=== PATIENT | male | born 1975 | race Caucasian/White ===

== ENCOUNTER → 2020-05-15 15:36 | Outpatient (CLI) | payer OTHER, SELFPAY ==
--- NOTE | 2020-05-15 15:40 | DI.CT.S_ITS ---
PROCEDURE: CT SINUS SCREEN WO CON INDICATIONS: CHRONIC SINUSITUS TECHNIQUE: Noncontrast 3.0 mm axial images acquired from the frontal sinuses to the mid-sella, with coronal and sagittal reformats. For radiation dose reduction, the following was used: automated exposure control, adjustment of mA and/or kV according to patient size. COMPARISON: None. FINDINGS: Image quality: Excellent. Maxillary Sinuses: No bony remodeling or destruction. Sinuses are clear. Ethmoid Air Cells: No bony remodeling or destruction. Sinuses are clear. Sphenoid Sinuses: No bony remodeling or destruction. Sinuses are clear. Frontal Sinuses: No bony remodeling or destruction. Sinuses are clear. Ostiomeatal Complexes: Ostiomeatal complexes are patent. No Anish cells. Miscellaneous: Visualized intra-orbital contents are normal. No bonita bullosa or paradoxical turbinate curvature. Leftward nasal septal deviation. IMPRESSION: Clear sinuses Leftward nasal septal deviation Dictated by: Mukesh Vicente M.D. on 05/15/2020 at 16:11 Approved by: Mukesh Vicente M.D. on 05/15/2020 at 16:18
== END ==
PROVIDERS: Referring Provider Family Medicine; Visit Provider Family Medicine
DX: J32.9 Chronic sinusitis, unspecified (principal); J34.2 Deviated nasal septum
CPT/HCPCS: 70486

== ENCOUNTER 2020-08-02 04:53 | Emergency (ER) | payer OTHER, SELFPAY ==
[2020-08-02] VITALS (12 sets, daily range): BP systolic 95–130; BP diastolic 51–67; PULSE 61–76; RESP 17; TEMP 36.9; O2SAT 92–98; BMI 32.1
[2020-08-02 05:15] LABS: Add Manual Diff / Slide Review NO; Basophils Absolute Auto 0 /uL (0-100); Basophils Percent Auto 0.5 % (0-2); Eosinophils Absolute Auto 100 /uL (0-450); Eosinophils Percent Auto 1.2 % (2-4); Hematocrit 49.8 % (41-53); Hemoglobin 17.1 g/dL (13.5-17.5); Lymphocytes Absolute Auto 1100 /uL (1100-4500); Lymphocytes Percent Auto 10.9 % (25-40); Mean Corpuscular HGB Conc 34.4 % (30-36); Mean Corpuscular Hemoglobin 30.2 PG (26-34); Monocytes Absolute Auto 300 /uL (0-900); Monocytes Percent Auto 3.5 % (3-14); Neutrophils Absolute Auto 8200 /uL (1500-7000); Neutrophils Percent Auto 83.9 % (50-75); Platelet Count 229 X10^3/uL (150-400); Red Blood Cell Count 5.66 X10^6/uL (4.5-5.9); Red Cell Distribution Width 13.7 % (11.6-14.8); White Blood Cell Count 9.8 X10^3/uL (4.5-11.0)
[2020-08-02] MEDS: ONDANSETRON 4 MG/2 ML INJ IV ×2 (05:15→07:02)
[2020-08-02] MEDS: SODIUM CHLORIDE 0.9% 1,000 ML 1000 ML IV ×2 (05:16→07:03)
--- NOTE | 2020-08-02 05:17 | ED.GENADULT ---
HPI - General Adult <Rody Blunt MD - Last Filed: 08/05/20 02:16> General Chief complaint: Abdominal Pain Stated complaint: n/v intense stomach pain Time Seen by Provider: 08/02/20 05:06 Source: patient Mode of arrival: Wheelchair Limitations: no limitations History of Present Illness HPI narrative: 45-year-old gentleman with chronic back pain and peripheral neuropathy, seasonal allergies and reflux presents with 24 hours of severe vomiting and diarrhea with orthostatics symptoms and abdominal pain. Over the last week multiple family members including 3 other kids had similar symptoms but not quite as severe. He had diarrhea a couple of days ago that resolved spontaneously. He reports no fevers. He has had significant chills and fatigue. No chest pain but he does have esophageal pain and upper epigastrium pain from persistent vomiting and retching. No cough, mild headache mild dizziness no asymmetric weakness. Related Data Previous Rx's Medication Instructions Recorded ondansetron 4 mg PO Q6H PRN #14 tab 08/02/20 Allergies Allergy/AdvReac Type Severity Reaction Status Date / Time No Known Drug Allergies Allergy Verified 08/02/20 05:03 Review of Systems <Rody Blunt MD - Last Filed: 08/05/20 02:16> Review of Systems Narrative: Remainder of review of systems including constitutional, ENT, cardiovascular, respiratory, GI, , musculoskeletal, skin, neurologic and psychiatric systems reviewed and are unremarkable except as noted in HPI. Patient History <Rody Blunt MD - Last Filed: 08/05/20 02:16> Medical History Acid reflux Chronic back pain Irritable bowel syndrome Seasonal allergies Social History Smoking Status: Never smoker Smoking Status: Never smoker alcohol intake frequency: a few times a month Substance Use Type: does not use Exam <Rody Blunt MD - Last Filed: 08/05/20 02:16> Narrative Exam Narrative: General: Acutely ill-appearing, weak but able to participate fully with history taking HEENT: Dry mucous membranes, normal sclera with reactive pupils, Respiratory: Lungs are clear to auscultation, no wheezing no rales no rhonchi. Full and symmetrical air movement Cardiac: Regular rate and rhythm no murmurs no bruits Abdomen: Soft, mild diffuse tenderness, hyperactive bowel tones, no flank pain Skin: Warm and dry, no rashes Neurologic: Grossly neurologically intact with no obvious asymmetries or abnormalities Extremities: No trauma, well perfused Psych: Cooperative, appropriate insight and affect Initial Vital Signs Initial Vital Signs: Vital Signs Temperature 98.5 F 08/02/20 05:03 Pulse Rate 74 08/02/20 05:03 Respiratory Rate 17 08/02/20 05:03 Blood Pressure 130/65 08/02/20 05:03 Pulse Oximetry 93 08/02/20 05:03 <Jose Manuel Vivar DO - Last Filed: 08/02/20 09:12> Initial Vital Signs Initial Vital Signs: Vital Signs Temperature 98.5 F 08/02/20 05:03 Pulse Rate 74 08/02/20 05:03 Respiratory Rate 17 08/02/20 05:03 Blood Pressure 130/65 08/02/20 05:03 Pulse Oximetry 93 08/02/20 05:03 Course <Rody Blunt MD - Last Filed: 08/05/20 02:16> Orders Ordered: Discontinued Medications Hydromorphone HCl (Hydromorphone 0.5 Mg Inj) 0.5 mg IV Q15MIN PRN PRN Reason: Pain, Last Admin: 08/02/20 05:35 Dose: 0.5 mg Documented by: AFIA Hydromorphone HCl (Hydromorphone 1 Mg Inj) 1 mg IV NOW ONE Stop: 08/02/20 06:42 Last Admin: 08/02/20 07:02 Dose: 1 mg Documented by: CON Sodium Chloride (Normal Saline 0.9%) 1,000 mls @ 1,000 mls/hr IV BOLUS ONE Stop: 08/02/20 06:07 Last Infusion: 08/02/20 07:12 Dose: 0 mls/hr Documented by: Admin: 08/02/20 05:16 Dose: 1,000 mls/hr Documented by: AFIA Sodium Chloride (Normal Saline 0.9%) 1,000 mls @ 1,000 mls/hr IV BOLUS ONE Stop: 08/02/20 06:51 Last Infusion: 08/02/20 09:03 Dose: 0 mls/hr Documented by: Admin: 08/02/20 07:03 Dose: 1,000 mls/hr Documented by: CON Ondansetron HCl (Ondansetron 4 Mg/2 Ml Inj) 4 mg IV NOW ONE Stop: 08/02/20 05:09 Last Admin: 08/02/20 05:15 Dose: 4 mg Documented by: AFIA Ondansetron HCl (Ondansetron 4 Mg/2 Ml Inj) 4 mg IV NOW ONE Stop: 08/02/20 06:42 Last Admin: 08/02/20 07:02 Dose: 4 mg Documented by: CON Vital Signs Vital signs: Vital Signs - 8 hr 08/02/20 05:03 08/02/20 05:15 08/02/20 05:30 Temperature 98.5 F Pulse Rate 74 69 69 Respiratory Rate 17 Blood Pressure 130/65 Pulse Oximetry 93 93 95 08/02/20 06:00 08/02/20 07:09 08/02/20 07:30 Temperature Pulse Rate 65 66 62 Respiratory Rate Blood Pressure 123/65 Pulse Oximetry 93 93 92 08/02/20 07:43 08/02/20 08:00 08/02/20 08:30 Temperature Pulse Rate 66 67 67 Respiratory Rate Blood Pressure 108/67 97/56 L 95/51 L Pulse Oximetry 94 92 92 08/02/20 09:00 08/02/20 09:02 Temperature Pulse Rate 61 71 Respiratory Rate Blood Pressure 102/65 Pulse Oximetry 97 98 <Jose Manuel Vivar DO - Last Filed: 08/02/20 09:12> Orders Ordered: Discontinued Medications Hydromorphone HCl (Hydromorphone 0.5 Mg Inj) 0.5 mg IV Q15MIN PRN PRN Reason: Pain, Last Admin: 08/02/20 05:35 Dose: 0.5 mg Documented by: AFIA Hydromorphone HCl (Hydromorphone 1 Mg Inj) 1 mg IV NOW ONE Stop: 08/02/20 06:42 Last Admin: 08/02/20 07:02 Dose: 1 mg Documented by: CON Sodium Chloride (Normal Saline 0.9%) 1,000 mls @ 1,000 mls/hr IV BOLUS ONE Stop: 08/02/20 06:07 Last Infusion: 08/02/20 07:12 Dose: 0 mls/hr Documented by: Admin: 08/02/20 05:16 Dose: 1,000 mls/hr Documented by: AFIA Sodium Chloride (Normal Saline 0.9%) 1,000 mls @ 1,000 mls/hr IV BOLUS ONE Stop: 08/02/20 06:51 Last Infusion: 08/02/20 09:03 Dose: 0 mls/hr Documented by: Admin: 08/02/20 07:03 Dose: 1,000 mls/hr Documented by: CON Ondansetron HCl (Ondansetron 4 Mg/2 Ml Inj) 4 mg IV NOW ONE Stop: 08/02/20 05:09 Last Admin: 08/02/20 05:15 Dose: 4 mg Documented by: AFIA Ondansetron HCl (Ondansetron 4 Mg/2 Ml Inj) 4 mg IV NOW ONE Stop: 08/02/20 06:42 Last Admin: 08/02/20 07:02 Dose: 4 mg Documented by: CON Vital Signs Vital signs: Vital Signs - 8 hr 08/02/20 05:03 08/02/20 05:15 08/02/20 05:30 Temperature 98.5 F Pulse Rate 74 69 69 Respiratory Rate 17 Blood Pressure 130/65 Pulse Oximetry 93 93 95 08/02/20 06:00 08/02/20 07:09 08/02/20 07:30 Temperature Pulse Rate 65 66 62 Respiratory Rate Blood Pressure 123/65 Pulse Oximetry 93 93 92 08/02/20 07:43 08/02/20 08:00 08/02/20 08:30 Temperature Pulse Rate 66 67 67 Respiratory Rate Blood Pressure 108/67 97/56 L 95/51 L Pulse Oximetry 94 92 92 08/02/20 09:00 08/02/20 09:02 Temperature Pulse Rate 61 71 Respiratory Rate Blood Pressure 102/65 Pulse Oximetry 97 98 Medical Decision Making <Rody Blunt MD - Last Filed: 08/05/20 02:16> Lab Data Result diagrams: 08/02/20 05:05 08/02/20 05:05 Labs: Lab Results 08/02/20 08/02/20 08/02/20 Range/Units 05:05 05:05 06:25 WBC 9.8 (4.5-11.0) X10^3/uL RBC 5.66 (4.5-5.9) X10^6/uL Hgb 17.1 (13.5-17.5) g/dL Hct 49.8 (41-53) % MCV 88.0 (80-100) fL MCH 30.2 (26-34) PG MCHC 34.4 (30-36) % RDW 13.7 (11.6-14.8) % Plt Count 229 (150-400) X10^3/uL Neut % (Auto) 83.9 H (50-75) % Lymph % (Auto) 10.9 L (25-40) % [place] % (Auto) 3.5 (3-14) % Eos % (Auto) 1.2 L (2-4) % Baso % (Auto) 0.5 (0-2) % Neut # (Auto) 8200 H (5278-8919) /uL Lymph # (Auto) 1100 (3668-2737) /uL [place] # (Auto) 300 (0-900) /uL Eos # (Auto) 100 (0-450) /uL Baso # (Auto) 0 (0-100) /uL Sodium 139 (137-145) mmol/L Potassium 5.0 (3.4-5.1) mmol/L Chloride 105 (98-107) mmol/L Carbon Dioxide 22 (22-32) mmol/L BUN 19 (9-20) mg/dL Creatinine 0.81 (0.66-1.25) mg/dL Estimated GFR > 60.0 (>60) mL/min BUN/Creatinine Ratio 23.5 H (6-22) Glucose 137 H (70-100) mg/dL Calcium 9.4 (8.4-10.2) mg/dL Magnesium 2.1 (1.6-2.3) mg/dL Total Bilirubin 0.5 (0.2-1.3) mg/dL AST 41 (17-59) IU/L ALT 70 H (<50) IU/L Alkaline Phosphatase 67 (38-126) U/L Total Protein 8.3 H (6.3-8.2) g/dL Albumin 4.9 (3.5-5.0) g/dL Globulin 3.4 (1.7-4.1) g/dL Albumin/Globulin Ratio 1.4 (1.0-2.8) Stl C. cayetanensis PCR Not detected (Not Detect) Stool Rotavirus (PCR) Not detected (Not Detect) Stool Adenovirus (PCR) Not detected (Not Detect) Stool Astrovirus (PCR) Not detected (Not Detect) Stool Cryptosporidium PCR Not detected (Not Detect) Stl E.coli Shiga Tox PCR Not detected (Not Detect) St Sh/Enteroin Ecoli PCR Not detected (Not Detect) Stool E coli O157 PCR Not Reportable Stl Enterotoxigenic E PCR Not detected (Not Detect) Stool EPEC (PCR) Not detected (Not Detect) Stl E. histolytica PCR Not detected (Not Detect) Stool Giardia Lamblia PCR Not detected (Not Detect) Stool Sapovirus (PCR) Not detected (Not Detect) Stl P. shigelloides PCR Not detected (Not Detect) St Y.enterocolitica PCR Not detected (Not Detect) Stool Vibrio (PCR) Not detected (Not Detect) Stl Vibrio cholerae PCR Not detected (Not Detect) Stl Enteroaggr Ecoli PCR Not detected (Not Detect) Stl Norovirus GI/GII PCR Not detected (Not Detect) Campylobacter (PCR) Not detected (Not Detect) C. difficile Tox (PCR) Not detected (Not Detect) Salmonella (PCR) Not detected (Not Detect) <Jose Manuel Vivar DO - Last Filed: 08/02/20 09:12> Lab Data Lab results reviewed: Yes I reviewed the patient's lab results. Labs: Lab Results 08/02/20 08/02/20 08/02/20 Range/Units 05:05 05:05 06:25 WBC 9.8 (4.5-11.0) X10^3/uL RBC 5.66 (4.5-5.9) X10^6/uL Hgb 17.1 (13.5-17.5) g/dL Hct 49.8 (41-53) % MCV 88.0 (80-100) fL MCH 30.2 (26-34) PG MCHC 34.4 (30-36) % RDW 13.7 (11.6-14.8) % Plt Count 229 (150-400) X10^3/uL Neut % (Auto) 83.9 H (50-75) % Lymph % (Auto) 10.9 L (25-40) % [place] % (Auto) 3.5 (3-14) % Eos % (Auto) 1.2 L (2-4) % Baso % (Auto) 0.5 (0-2) % Neut # (Auto) 8200 H (1870-5871) /uL Lymph # (Auto) 1100 (2224-8714) /uL [place] # (Auto) 300 (0-900) /uL Eos # (Auto) 100 (0-450) /uL Baso # (Auto) 0 (0-100) /uL Sodium 139 (137-145) mmol/L Potassium 5.0 (3.4-5.1) mmol/L Chloride 105 (98-107) mmol/L Carbon Dioxide 22 (22-32) mmol/L BUN 19 (9-20) mg/dL Creatinine 0.81 (0.66-1.25) mg/dL Estimated GFR > 60.0 (>60) mL/min BUN/Creatinine Ratio 23.5 H (6-22) Glucose 137 H (70-100) mg/dL Calcium 9.4 (8.4-10.2) mg/dL Magnesium 2.1 (1.6-2.3) mg/dL Total Bilirubin 0.5 (0.2-1.3) mg/dL AST 41 (17-59) IU/L ALT 70 H (<50) IU/L Alkaline Phosphatase 67 (38-126) U/L Total Protein 8.3 H (6.3-8.2) g/dL Albumin 4.9 (3.5-5.0) g/dL Globulin 3.4 (1.7-4.1) g/dL Albumin/Globulin Ratio 1.4 (1.0-2.8) Stl C. cayetanensis PCR Not detected (Not Detect) Stool Rotavirus (PCR) Not detected (Not Detect) Stool Adenovirus (PCR) Not detected (Not Detect) Stool Astrovirus (PCR) Not detected (Not Detect) Stool Cryptosporidium PCR Not detected (Not Detect) Stl E.coli Shiga Tox PCR Not detected (Not Detect) St Sh/Enteroin Ecoli PCR Not detected (Not Detect) Stool E coli O157 PCR Not Reportable Stl Enterotoxigenic E PCR Not detected (Not Detect) Stool EPEC (PCR) Not detected (Not Detect) Stl E. histolytica PCR Not detected (Not Detect) Stool Giardia Lamblia PCR Not detected (Not Detect) Stool Sapovirus (PCR) Not detected (Not Detect) Stl P. shigelloides PCR Not detected (Not Detect) St Y.enterocolitica PCR Not detected (Not Detect) Stool Vibrio (PCR) Not detected (Not Detect) Stl Vibrio cholerae PCR Not detected (Not Detect) Stl Enteroaggr Ecoli PCR Not detected (Not Detect) Stl Norovirus GI/GII PCR Not detected (Not Detect) Campylobacter (PCR) Not detected (Not Detect) C. difficile Tox (PCR) Not detected (Not Detect) Salmonella (PCR) Not detected (Not Detect) MDM Narrative Medical decision making narrative: Dr vivar: Received turned over from night provider. Reviewed patient's history and physical on labs. His GI panel was unremarkable. Received fluids and pain medication here in the emergency department. Has family members who have similar symptoms. No indication for antibiotics. We will send home with [facility]. I feel we can hold on further workup here in the ER. We also discussed starting on an H2 reji. He does have a history of reflux disease. He was given return precautions and follow-up instructions. He expressed understanding agreement. Discharge Plan Departure Patient Disposition: Home Clinical Impression: Abdominal pain Instructions: Nausea and Vomiting-Adult Activity Restrictions/Additional Instructions: A prescription for nausea medication was electronically transmitted to [facility]. I recommend that you eat a bland diet. Increase your fluid intake by drinking small amounts over longer periods of time. Contact your primary provider for follow-up. Return to the emergency department for any new or worsening symptoms Prescriptions: New ondansetron 4 mg tablet,disintegrating 4 mg PO Q6H PRN (Reason: nausea and vomiting) Qty: 14 RF: 0
[2020-08-02 05:30] LABS: Alanine Aminotransferase 70 IU/L (<50); Albumin 4.9 g/dL (3.5-5.0); Albumin Globulin Ratio 1.4 (1.0-2.8); Alkaline Phosphatase 67 U/L (38-126); Aspartate Aminotransferase 41 IU/L (17-59); BUN Creatinine Ratio 23.5 (6-22); Bilirubin Total 0.5 mg/dL (0.2-1.3); Blood Urea Nitrogen 19 mg/dL (9-20); Calcium 9.4 mg/dL (8.4-10.2); Carbon Dioxide 22 mmol/L (22-32); Chloride 105 mmol/L (98-107); Estimated Glomerular Filt Rate > 60.0 mL/min (>60); Globulin 3.4 g/dL (1.7-4.1); Glucose 137 mg/dL (70-100); Magnesium 2.1 mg/dL (1.6-2.3); Sodium 139 mmol/L (137-145); Total Protein 8.3 g/dL (6.3-8.2)
[2020-08-02 05:33] LABS: HEMOLYSIS 82 (0-50)
[2020-08-02] MEDS: HYDROMORPHONE 0.5 MG INJ IV (05:35)
[2020-08-02] MEDS: HYDROMORPHONE 1 MG INJ IV (07:02)
[2020-08-02 08:49] LABS: Adenovirus F 40/41 Not Detected (Not Detect); Astrovirus Not Detected (Not Detect); Campylobacter Not Detected (Not Detect); Clostridium difficile toxin AB Not Detected (Not Detect); Cryptosporidium Not Detected (Not Detect); Cyclospora cayetanensis Not Detected (Not Detect); Entamoeba histolytica Not Detected (Not Detect); Enteroaggregative E.coli Not Detected (Not Detect); Enteropathogenic E.coli Not Detected (Not Detect); Enterotoxigenic E.coli It/st Not Detected (Not Detect); Giardia lamblia Not Detected (Not Detect); Norovirus GI/GII Not Detected (Not Detect); Plesiomonsa shigelloides Not Detected (Not Detect); Rotavirus A Not Detected (Not Detect); Salmonella Not Detected (Not Detect); Sapovirus Not Detected (Not Detect); Shiga-like toxin-prod E.coli Not Detected (Not Detect); Shigella/Enteroinvasive E.coli Not Detected (Not Detect); Vibrio Not Detected (Not Detect); Vibrio cholerae Not Detected (Not Detect); Yersinia enterocolitica Not Detected (Not Detect)
== END 2020-08-02 09:16 | disposition home or self-care (01) ==
PROVIDERS: Emergency Medicine; Emergency Provider Emergency Medicine
DX: R10.13 Epigastric pain (principal); R11.2 Nausea with vomiting, unspecified
CPT/HCPCS: 36415; 80053; 83735; 85025; 87507; 96361; 96374; 96375; 96376; 99281; 99284; J1170; J2405

== ENCOUNTER 2020-08-25 23:52 | Emergency (ER) | payer OTHER, SELFPAY ==
[2020-08-26 00:27] VITALS: BP 144/104; PULSE 71; RESP 18; TEMP 36.4; O2SAT 97; BMI 32.1
--- NOTE | 2020-08-26 00:31 | DI.RAD.S_ITS ---
PROCEDURE: XR ACUTE ABDOMEN SERIES INDICATIONS: Abdominal pain TECHNIQUE: One view chest and two views of the abdomen were acquired. COMPARISON: [facility], CT, CT ABDOMEN PELVIS W CON, 08/26/2020, 1:20. FINDINGS: Surgical changes and devices: None. Chest: Lungs are clear. Heart size is normal. No pleural effusions. No pneumoperitoneum. Abdomen: Bowel gas pattern is normal. No suspicious calcifications. Visualized solid organ contours appear normal. Bones: No suspicious bony lesions. IMPRESSION: No obstruction or free air. The above findings are concordant with preliminary report. Dictated by: Meryl Zamora M.D. on 08/26/2020 at 10:00 Approved by: Meryl Zamora M.D. on 08/26/2020 at 10:00
[2020-08-26 00:46] LABS: Add Manual Diff / Slide Review NO; Basophils Absolute Auto 100 /uL (0-100); Basophils Percent Auto 0.8 % (0-2); Eosinophils Absolute Auto 500 /uL (0-450); Eosinophils Percent Auto 6.2 % (2-4); Hematocrit 47.8 % (41-53); Hemoglobin 16.1 g/dL (13.5-17.5); Lymphocytes Absolute Auto 2300 /uL (1100-4500); Lymphocytes Percent Auto 29.9 % (25-40); Mean Corpuscular HGB Conc 33.7 % (30-36); Mean Corpuscular Hemoglobin 29.4 PG (26-34); Mean Corpuscular Volume 87.2 fL (80-100); Monocytes Absolute Auto 500 /uL (0-900); Monocytes Percent Auto 6.6 % (3-14); Neutrophils Absolute Auto 4300 /uL (1500-7000); Neutrophils Percent Auto 56.5 % (50-75); Platelet Count 239 X10^3/uL (150-400); Red Blood Cell Count 5.49 X10^6/uL (4.5-5.9); Red Cell Distribution Width 13.7 % (11.6-14.8); White Blood Cell Count 7.6 X10^3/uL (4.5-11.0)
[2020-08-26] MEDS: PANTOPRAZOLE 40 MG VIAL IV (00:51)
[2020-08-26] MEDS: SODIUM CHLORIDE 0.9% 1,000 ML 1000 ML IV (00:51)
[2020-08-26 00:52] LABS: Alanine Aminotransferase 76 IU/L (<50); Albumin 4.7 g/dL (3.5-5.0); Albumin Globulin Ratio 1.5 (1.0-2.8); Alkaline Phosphatase 75 U/L (38-126); Aspartate Aminotransferase 38 IU/L (17-59); BUN Creatinine Ratio 21.7 (6-22); Bilirubin Total 0.4 mg/dL (0.2-1.3); Blood Urea Nitrogen 18 mg/dL (9-20); Calcium 9.5 mg/dL (8.4-10.2); Carbon Dioxide 19 mmol/L (22-32); Chloride 107 mmol/L (98-107); Estimated Glomerular Filt Rate > 60.0 mL/min (>60); Globulin 3.2 g/dL (1.7-4.1); Glucose 125 mg/dL (70-100); HEMOLYSIS < 15 (0-50); Potassium 3.5 mmol/L (3.4-5.1); Sodium 139 mmol/L (137-145); Total Protein 7.9 g/dL (6.3-8.2)
[2020-08-26] MEDS: ONDANSETRON 4 MG/2 ML INJ IV (00:52)
--- NOTE | 2020-08-26 00:52 | ED_ITS ---
HPI - Abdominal Pain General Chief Complaint: Abdominal Pain Stated Complaint: nausea, vomiting, diarrhea Time Seen by Provider: 08/25/20 23:54 Source: patient Mode of arrival: Wheelchair Limitations: no limitations History of Present Illness HPI narrative: 45M nonsmoker with history of IBS and GERD presents with his and the chief complaint of worsening N/V/D and generalized abdominal pain over the past few hours. Patient states this is his third such episode in the past few months and he does carry a diagnosis of IBS. He states his pain is generalized and severe (as high as 9/10) he denies any radiation of his pain. He states the pain comes in waves and seems to build until he vomits at which point he does have some brief relief. He denies fever or chills, recent travel, exposure to bad food, recent ABX, exposure to ill persons. He denies any significant diet or medication change. He is not dizzy, weak, or lightheaded. He denies any blood in vomit or stool MD complaint: abdominal pain Onset (ago): hour(s) Pain Consistency: intermittent Location: diffuse Severity: severe Quality: cramping and aching Radiation: none Relieving factors: vomiting Exacerbating factors: nothing Associated symptoms: nausea, vomiting and diarrhea Related Data Previous Rx's Medication Instructions Recorded ondansetron 4 mg PO Q6H PRN #14 tab 08/02/20 hydrocodone-acetaminophen 1 tab PO Q4-6H PRN #10 tab 08/26/20 hyoscyamine sulfate 0.125 mg PO BID-QID PRN #20 tab 08/26/20 ondansetron 4 mg PO TID-QID PRN #10 tab 08/26/20 pantoprazole [Protonix] 40 mg PO DAILY #30 tab 08/26/20 Allergies Allergy/AdvReac Type Severity Reaction Status Date / Time No Known Drug Allergies Allergy Verified 08/02/20 05:03 Review of Systems Constitutional Constitutional: Denies chills, Denies fatigue, Denies fever(s), Denies frequent falls, Denies lethargy and Denies weakness Eyes Eyes: Denies change in vision, Denies eye discharge, Denies irritation and Denies loss of vision ENT Ears, Nose, Mouth, and Throat: Denies change in voice, Denies dizziness, Denies neck pain, Denies sore throat and Denies throat swelling Cardiovascular Cardiovascular: Denies chest pain, Denies irregular heart rhythm, Denies lightheadedness, Denies palpitations, Denies dyspnea, Denies dyspnea on exertion and Denies orthopnea Respiratory Respiratory: Denies cough, Denies dyspnea, Denies dyspnea on exertion and Denies wheezing Gastrointestinal Gastrointestinal: Reports abdominal pain, Denies change in bowel habits, Reports diarrhea, Reports nausea and Reports vomiting Musculoskeletal Musculoskeletal: Denies neck pain and Denies numbness Integumentary/Breasts Skin/Breast: Denies pruritus, Denies erythema, Denies rash and Denies wounds Neurologic Neurologic: Denies behavioral changes, Denies confusion, Denies dizziness, Denies frequent falls, Denies loss of vision, Denies numbness and Denies weakness Psychiatric Psychiatric: Denies anxiety, Denies behavioral changes, Denies confusion, Denies depression, Denies homicidal ideation and Denies suicidal ideation Endocrine Endocrine: Denies fatigue, Denies flushing and Denies palpitations Hematologic/Lymphatic Hematologic/Lymphatic: Denies easy bruising Allergic/Immunologic Allergic/Immunologic: Denies urticaria, Denies throat swelling and Denies wheezing Patient History Medical History Acid reflux Chronic back pain Irritable bowel syndrome Seasonal allergies Social History Smoking Status: Never smoker Smoking Status: Never smoker alcohol intake frequency: a few times a month Substance Use Type: does not use Exam Narrative Exam Narrative: GENERAL: [45] year old patient appears stated age. Well- nourished, well-developed patient, in moderate distress. Obviously in pain, clutching his abdomen HEAD: Atraumatic. Normocephalic. EYES: Pupils equal round and reactive. Extraocular motions intact. No scleral icterus. No injection or drainage. ENT: Nose without bleeding, purulent drainage. Throat without erythema, tonsillar hypertrophy or exudate. Airway patent. NECK: Trachea midline. Non tender CARDIOVASCULAR: Regular rate and rhythm without murmurs, gallops, or rubs. RESPIRATORY: Clear to auscultation. Breath sounds equal bilaterally. No wheezes, rales, or rhonchi. GASTROINTESTINAL: Abdomen soft, generalized tenderness, nondistended. Bowel sounds present in all 4 quadrants EXTREMITIES: No edema or joint tenderness. BACK: Nontender without deformity or crepitance. No flank tenderness. NEURO: AOx3. SKIN: No rash or erythema of visible areas Initial Vital Signs Initial Vital Signs: Vital Signs Temperature 97.5 F L 08/26/20 00:27 Pulse Rate 71 08/26/20 00:27 Respiratory Rate 18 08/26/20 00:27 Blood Pressure 144/104 H 08/26/20 00:27 Pulse Oximetry 97 08/26/20 00:27 Course Orders Ordered: ED Orders 08/26/20 00:20 Complete Blood Count AUTO DIFF Stat Comprehensive Metabolic Panel Stat 08/26/20 00:31 XR acute abdomen series Stat 08/26/20 00:40 Stool Culture Stat 08/26/20 01:11 CT abdomen pelvis w con Stat Ondansetron HCl (Ondansetron 4 Mg/2 Ml Inj) 4 mg IV Q4HR PRN PRN Reason: Nausea And Vomiting Last Admin: 08/26/20 00:52 Dose: 4 mg Documented by: NAM Discontinued Medications Hydrocodone Bitart/Acetaminophen (Hydrocodone/Acet 5/325 Prepack) 1 bottle MISC SEEINSTR ONE Stop: 08/26/20 02:15 Hydromorphone HCl (Hydromorphone 1 Mg Inj) 1 mg IV NOW ONE Stop: 08/26/20 00:57 Last Admin: 08/26/20 01:01 Dose: 1 mg Documented by: AFIA Sodium Chloride (Normal Saline 0.9%) 1,000 mls @ 1,000 mls/hr IV BOLUS ONE Stop: 08/26/20 01:26 Last Admin: 08/26/20 00:51 Dose: 1,000 mls/hr Documented by: NAM Methylprednisolone (Methylprednisolone 125 Mg/2 Ml Vial) 125 mg IV NOW ONE Stop: 08/26/20 01:37 Last Admin: 08/26/20 01:51 Dose: 125 mg Documented by: NAM Ondansetron HCl (Ondansetron 4 Mg Odt Prepack) 1 bottle MISC SEEINSTR ONE Stop: 08/26/20 02:15 Pantoprazole Sodium (Pantoprazole 40 Mg Vial) 40 mg IV NOW ONE Stop: 08/26/20 00:28 Last Admin: 08/26/20 00:51 Dose: 40 mg Documented by: KWOYSKI Vital Signs Vital signs: Vital Signs - 8 hr 08/26/20 00:27 08/26/20 02:01 Temperature 97.5 F L Pulse Rate 71 62 Respiratory Rate 18 14 Blood Pressure 144/104 H 140/77 Pulse Oximetry 97 95 MDM - Abdominal Pain Lab Data Result diagrams: 08/26/20 00:20 08/26/20 00:20 Labs: Lab Results 08/26/20 08/26/20 Range/Units 00:20 00:20 WBC 7.6 (4.5-11.0) X10^3/uL RBC 5.49 (4.5-5.9) X10^6/uL Hgb 16.1 (13.5-17.5) g/dL Hct 47.8 (41-53) % MCV 87.2 (80-100) fL MCH 29.4 (26-34) PG MCHC 33.7 (30-36) % RDW 13.7 (11.6-14.8) % Plt Count 239 (150-400) X10^3/uL Neut % (Auto) 56.5 (50-75) % Lymph % (Auto) 29.9 (25-40) % [place] % (Auto) 6.6 (3-14) % Eos % (Auto) 6.2 H (2-4) % Baso % (Auto) 0.8 (0-2) % Neut # (Auto) 4300 (1563-6662) /uL Lymph # (Auto) 2300 (4101-2389) /uL [place] # (Auto) 500 (0-900) /uL Eos # (Auto) 500 H (0-450) /uL Baso # (Auto) 100 (0-100) /uL Sodium 139 (137-145) mmol/L Potassium 3.5 (3.4-5.1) mmol/L Chloride 107 (98-107) mmol/L Carbon Dioxide 19 L (22-32) mmol/L BUN 18 (9-20) mg/dL Creatinine 0.83 (0.66-1.25) mg/dL Estimated GFR > 60.0 (>60) mL/min BUN/Creatinine Ratio 21.7 (6-22) Glucose 125 H (70-100) mg/dL Calcium 9.5 (8.4-10.2) mg/dL Total Bilirubin 0.4 (0.2-1.3) mg/dL AST 38 (17-59) IU/L ALT 76 H (<50) IU/L Alkaline Phosphatase 75 (38-126) U/L Total Protein 7.9 (6.3-8.2) g/dL Albumin 4.7 (3.5-5.0) g/dL Globulin 3.2 (1.7-4.1) g/dL Albumin/Globulin Ratio 1.5 (1.0-2.8) Imaging Data Abdominal x-ray: Radiologist's Impression: NAP CT scan - abdomen/pelvis: Radiologist's Impression: No significant abnormalities MDM Narrative Medical decision making narrative: Patient presents with a relatively sudden onset nausea, vomiting and diarrhea with generalized abdominal pain. Abdominal pain would come in waves without obvious provocation, palliation or radiation. He does state that it would build until he would vomit at which point he would experience relief. He states that he ate an abnormal diet tonight and questions whether this was a trigger. Multiple diagnoses including gallbladder disease and pancreatitis but thought unlikely given history and physical, lack of classic exam findings, imaging findings or lab abnormalities. Bowel obstruction considered but thought unlikely given lack of evidence on imaging or persistence of significant pain. The history, physical, lack of significant lab or imaging findings would suggest the possibility of some variant of irritable bowel syndrome. Extensive return precautions related to the patient. He and understand and agree with the diagnosis and plan and of had questions answered to their apparent satisfaction Discharge Plan Departure Patient Disposition: Home Clinical Impression: Irritable bowel syndrome Qualifiers: Irritable bowel syndrome type: with diarrhea Qualified Code(s): K58.0 - Irritable bowel syndrome with diarrhea Abdominal pain Qualifiers: Abdominal location: generalized Qualified Code(s): R10.84 - Generalized abdominal pain Instructions: DI for Abdominal Pain-Adult Activity Restrictions/Additional Instructions: *You have been diagnosed with [nausea or, vomiting, diarrhea and episodic abdominal pain likely related to irritable bowel syndrome. Your lab work and im aging are very reassuring.] *What to do: *Take medications as directed. Prescription sent to [facility] here in [place]. Please consider a clear liquid diet for 24-48 hours and advance as tolerated but continue to avoid fatty foods, alcohol, nicotine, caffeine and spicy foods *Follow up with your primary care provider in 2-3 days, call for an appointment. Let them know you were seen in the Emergency Department and that we ask that you be seen in follow up. It seems reasonable to pursue a referral to Gastroenterology as you will likely need colonoscopy and their expertise moving forward *Return to ER if you should have any new, worsening or concerning symptoms, such as [persistent vomiting, fever greater than 101, more persistent pain, other bothersome symptoms] Prescriptions: New hydrocodone-acetaminophen 5-325 mg tablet 1 tab PO Q4-6H PRN (Reason: pain) Qty: 10 RF: 0 pantoprazole [Protonix] 40 mg tablet,delayed release (DR/EC) 40 mg PO DAILY Qty: 30 RF: 0 hyoscyamine sulfate 0.125 mg tablet 0.125 mg PO BID-QID PRN (Reason: dyspepsia) Qty: 20 RF: 0 ondansetron 4 mg tablet,disintegrating 4 mg PO TID-QID PRN (Reason: nausea and vomiting) Qty: 10 RF: 0 No Action ondansetron 4 mg tablet,disintegrating 4 mg PO Q6H PRN (Reason: nausea and vomiting) Qty: 14 RF: 0 Referrals: Ming Bell MD [Physician] - Luz Calloway MD [Physician] -
[2020-08-26] MEDS: HYDROMORPHONE 1 MG INJ IV (01:01)
--- NOTE | 2020-08-26 01:11 | DI.CT.S_ITS ---
PROCEDURE: CT ABDOMEN PELVIS W CON INDICATIONS: severe abdominal pain, 3rd episode, 2nd visit TECHNIQUE: After the administration of intravenous contrast, 5 mm thick sections acquired from the diaphragm to the symphysis. 5 mm coronal and sagittal reformats were acquired. For radiation dose reduction, the following was used: automated exposure control, adjustment of mA and/or kV according to patient size. COMPARISON: None. FINDINGS: Image quality: Excellent. ABDOMEN: Lung bases: Lung bases are clear. Heart size is normal. Solid organs: Liver is normal in size and enhancement. Mild, diffuse hepatic fatty infiltration. Small 1.1 centimeters cyst noted in the left lobe. Gallbladder is normal. Biliary system is non dilated. Pancreas enhances normally. Spleen is normal in size and enhancement. No adrenal nodules. Kidneys demonstrate normal size and enhancement, without hydronephrosis. Peritoneum and bowel: Bowel loops demonstrate normal wall thickness and caliber. No free fluid or air. Appendix is normal. Nodes and vessels: No retroperitoneal or mesenteric adenopathy by size criteria. Aorta and inferior vena cava are normal in size. Miscellaneous: No ventral hernias. PELVIS: Genitourinary: Bladder wall thickness is normal. Miscellaneous: No inguinal adenopathy. Small fat containing left inguinal hernia. Bones: No suspicious bony lesions. No vertebral body compression fractures. Spine degenerative disc disease and facet arthropathy. IMPRESSION: 1. No acute disease process. 2. No free fluid or free air. 3. No dilated loops of bowel. 4. Appendix is normal. Dictated by: Laly Pozo MD, PhD on 08/26/2020 at 7:48 Approved by: Laly Pozo MD, PhD on 08/26/2020 at 7:51
[2020-08-26] MEDS: methylPREDNISolone 125 MG/2 ML VIAL IV (01:51)
[2020-08-26 02:01] VITALS: BP 140/77; PULSE 62; RESP 14; O2SAT 95
[2020-08-26] MEDS: HYDROCODONE/ACET 5/325 PREPACK 1 BOTTLE MISC (02:32)
[2020-08-26] MEDS: ONDANSETRON 4 MG ODT PREPACK 1 BOTTLE MISC (02:32)
[2020-08-26 02:45] VITALS: BP 131/75; PULSE 65; RESP 16; TEMP 36.6; O2SAT 92
== END 2020-08-26 02:47 | disposition home or self-care (01) ==
PROVIDERS: Emergency Provider Emergency Medicine
DX: K58.0 Irritable bowel syndrome with diarrhea (principal)
CPT/HCPCS: 36415; 74022; 74177; 80053; 85025; 87045; 87899; 96361; 96374; 96375; 99284; C9113; J1170; J2405; J2930; Q9967

== ENCOUNTER 2020-09-08 10:11 | Emergency (ER) | payer OTHER, SELFPAY ==
[2020-09-08 10:20] VITALS: BP 134/77; PULSE 74; RESP 18; TEMP 36.7; O2SAT 95; BMI 32.1
--- NOTE | 2020-09-08 10:52 | ED_ITS ---
HPI - Abdominal Pain General Chief Complaint: Abdominal Pain Stated Complaint: N/V/D SEVERE STOMACH PAIN Time Seen by Provider: 09/08/20 10:36 Source: patient History of Present Illness HPI narrative: Patient brought here by his neighbor/friend. Has recurrence epi sodic abdominal pain nausea vomiting diarrhea. Two visits last month. CT scan within last 2 weeks. Tried home medications prescriptions without relief. Exacerbation of symptoms yesterday evening. Complains of epigastric abdominal sharp pain with nonbloody emesis and diarrhea. Feeling better now than he did earlier. Patient awaiting for his insurance/ to give referral to Gastroenterology. He cannot use our referrals from last 2 visits from this department. Patient states a lot of Tums last night. MD complaint: abdominal pain Related Data Previous Rx's Medication Instructions Recorded ondansetron 4 mg PO Q6H PRN #14 tab 08/02/20 hydrocodone-acetaminophen 1 tab PO Q4-6H PRN #10 tab 08/26/20 hyoscyamine sulfate 0.125 mg PO BID-QID PRN #20 tab 08/26/20 ondansetron 4 mg PO TID-QID PRN #10 tab 08/26/20 pantoprazole [Protonix] 40 mg PO DAILY #30 tab 08/26/20 hydrocodone-acetaminophen 1 tab PO Q6H PRN #10 tab 09/08/20 ondansetron 4 mg PO Q8H PRN #10 tab 09/08/20 sucralfate [Carafate] 1 g PO BID #20 tab 09/08/20 Allergies Allergy/AdvReac Type Severity Reaction Status Date / Time No Known Drug Allergies Allergy Verified 08/02/20 05:03 Review of Systems Review of Systems Narrative: GENERAL: Denies chills, fatigue, malaise, fever, sweats. HEENT: Denies sinus pain, ear pain, sore throat RESPIRATORY: Denies dyspnea, cough CARDIOVASCULAR: Denies chest pain, palpitations GASTROINTESTINAL: Complains of diarrhea, nausea, vomiting, abdominal pain : Denies dysuria, frequency, hematuria MUSCULOSKELETAL: denies muscle or bony pain SKIN: Denies rash, skin lesions NEUROLOGIC: Denies weakness, numbness ROS Unobtainable: All systems reviewed & are unremarkable except as noted in HPI and below Patient History Medical History Acid reflux Chronic back pain Irritable bowel syndrome Seasonal allergies Social History Smoking Status: Never smoker Smoking Status: Never smoker alcohol intake frequency: a few times a month Substance Use Type: does not use Exam Narrative Exam Narrative: GENERAL: in no distress, not toxic not dyspneic HEAD: Normocephalic. EYES: Pupils equal round No scleral icterus. No injection no discharge ENT: Mucous membranes moist. NECK: Trachea midline. CARDIOVASCULAR: Regular rate and rhythm without murmurs RESPIRATORY: Clear to auscultation. Breath sounds equal bilaterally. No wheezes, rales, or rhonchi. GASTROINTESTINAL: Abdomen soft, mild tenderness to the epigastric and periumbilical areas. No peritoneal signs, bowel sounds present. EXTREMITIES: No gross deformities. BACK: No flank tenderness. NEURO: AOx4. SKIN: Warm and dry PSYCH: Not anxious, is cooperative Initial Vital Signs Initial Vital Signs: Vital Signs Temperature 98.1 F 09/08/20 10:20 Pulse Rate 74 09/08/20 10:20 Respiratory Rate 18 09/08/20 10:20 Blood Pressure 134/77 09/08/20 10:20 Pulse Oximetry 95 09/08/20 10:20 Course Course Course Narrative: Feeling better during course of stay and treatment. No new issues Orders Ordered: Discontinued Medications Sodium Chloride (Normal Saline 0.9%) 1,000 mls @ 1,000 mls/hr IV BOLUS ONE Stop: 09/08/20 11:40 Last Infusion: 09/08/20 12:15 Dose: 1,000 mls/hr Documented by: Admin: 09/08/20 11:14 Dose: 1,000 mls/hr Documented by: AUGUSTINE Sodium Chloride (Normal Saline 0.9%) 1,000 mls @ 1,000 mls/hr IV BOLUS ONE Stop: 09/08/20 14:17 Last Infusion: 09/08/20 14:30 Dose: 1,000 mls/hr Documented by: Admin: 09/08/20 13:23 Dose: 1,000 mls/hr Documented by: NAYA Morphine Sulfate (Morphine 4 Mg/Ml Inj) 4 mg IV NOW ONE Stop: 09/08/20 10:52 Last Admin: 09/08/20 11:13 Dose: 4 mg Documented by: AUGUSTINE Ondansetron HCl (Ondansetron 4 Mg/2 Ml Inj) 4 mg IV NOW ONE Stop: 09/08/20 10:52 Last Admin: 09/08/20 11:14 Dose: 4 mg Documented by: AUGUSTINE Reevaluation(s) Reevaluation #1: Patient feeling much better now. Medications has helped him. No nausea vomiting. No pain at this time. Reviewed results with him. He desires discharge home. Awaiting 2nd L of normal saline to finish Time: 13:22 Vital Signs Vital signs: Vital Signs - 8 hr 09/08/20 10:20 Temperature 98.1 F Pulse Rate 74 Respiratory Rate 18 Blood Pressure 134/77 Pulse Oximetry 95 MDM - Abdominal Pain Medical Records Attestation: I reviewed the patient's medical records. Medical records narrative: [address] [id number] Scan ReportSigned Patient: Claudio BautistaMR#: [id number]: [id number]:[id number]/Sex: 45 / MDate of Service: 08/26/20Loc: EDAccession Number: [id number] Procedure: CT abdomen pelvis w con Ordering Provider: Orestes Pittman D.O. PROCEDURE: CT ABDOMEN PELVIS W CON INDICATIONS: severe abdominal pain, 3rd episode, 2nd visit TECHNIQUE: After the administration of intravenous contrast, 5 mm thick sections acquired from the diaphragm to the symphysis. 5 mm coronal and sagittal reformats were acquired. For radiation dose reduction, the following was used: automated exposure control, adjustment of mA and/or kV according to patient size. COMPARISON: None. FINDINGS: Image quality: Excellent. ABDOMEN: Lung bases: Lung bases are clear. Heart size is normal. Solid organs: Liver is normal in size and enhancement. Mild, diffuse hepatic fatty infiltration. Small 1.1 centimeters cyst noted in the left lobe. Gallbladder is normal. Biliary system is non dilated. Pancreas enhances normally. Spleen is normal in size and enhancement. No adrenal nodules. Kidneys demonstrate normal size and enhancement, without hydronephrosis. Peritoneum and bowel: Bowel loops demonstrate normal wall thickness and caliber. No free fluid or air. Appendix is normal. Nodes and vessels: No retroperitoneal or mesenteric adenopathy by size criteria. Aorta and inferior vena cava are normal in size. Miscellaneous: No ventral hernias. PELVIS: Genitourinary: Bladder wall thickness is normal. Miscellaneous: No inguinal adenopathy. Small fat containing left inguinal hernia. Bones: No suspicious bony lesions. No vertebral body compression fractures. Spine degenerative disc disease and facet arthropathy. IMPRESSION: 1. No acute disease process. 2. No free fluid or free air. 3. No dilated loops of bowel. 4. Appendix is normal. Dictated by: Laly Pozo MD, PhD on 08/26/2020 at 7:48 Approved by: Laly Pozo MD, PhD on 08/26/2020 at 7:51 Lab Data Result diagrams: 09/08/20 11:20 09/08/20 11:58 Labs: Lab Results 09/08/20 09/08/20 Range/Units 11:20 11:58 WBC 13.4 H (4.5-11.0) X10^3/uL RBC 5.79 (4.5-5.9) X10^6/uL Hgb 17.1 (13.5-17.5) g/dL Hct 51.1 (41-53) % MCV 88.3 (80-100) fL MCH 29.6 (26-34) PG MCHC 33.5 (30-36) % RDW 14.0 (11.6-14.8) % Plt Count 236 (150-400) X10^3/uL Neut % (Auto) 87.2 H (50-75) % Lymph % (Auto) 6.9 L (25-40) % [place] % (Auto) 4.4 (3-14) % Eos % (Auto) 1.1 L (2-4) % Baso % (Auto) 0.4 (0-2) % Neut # (Auto) 05673 H (5468-4289) /uL Lymph # (Auto) 900 L (9627-1838) /uL [place] # (Auto) 600 (0-900) /uL Eos # (Auto) 200 (0-450) /uL Baso # (Auto) 100 (0-100) /uL Sodium 141 (137-145) mmol/L Potassium 5.2 H (3.4-5.1) mmol/L Chloride 107 (98-107) mmol/L Carbon Dioxide 27 (22-32) mmol/L BUN 21 H (9-20) mg/dL Creatinine 0.83 (0.66-1.25) mg/dL Estimated GFR > 60.0 (>60) mL/min BUN/Creatinine Ratio 25.3 H (6-22) Glucose 110 H (70-100) mg/dL Calcium 9.2 (8.4-10.2) mg/dL Total Bilirubin 0.4 (0.2-1.3) mg/dL AST 44 (17-59) IU/L ALT 73 H (<50) IU/L Alkaline Phosphatase 64 (38-126) U/L Total Protein 7.4 (6.3-8.2) g/dL Albumin 4.3 (3.5-5.0) g/dL Globulin 3.1 (1.7-4.1) g/dL Albumin/Globulin Ratio 1.4 (1.0-2.8) Lipase 264 (23-300) U/L MDM Narrative Medical decision making narrative: Appropriate for discharge home. Pain nausea vomiting improved. No repeat CT scan as patient just had 1 within last 2 weeks. Laboratory studies reviewed. Patient is in process of getting referral by [facility] for gastroenterology. Potassium levels elevated likely because patient states he ate a lot of Tums last night. Potassium minimally elevated. No repeat indicated this time. 2 L normal saline given here. White count noted. Slightly elevated compared to previous however not toxic. Pain pattern the same as past visits. Just had CT scan recently. Patient is comfortable and agrees with no CT scan at this time and home observation and return precautions reviewed with him and agrees. Discharge Plan Departure Patient Disposition: Home Clinical Impression: Abdominal pain, recurrent Instructions: DI for Abdominal Pain-Adult Activity Restrictions/Additional Instructions: See your family doctor for continued search for Gastroenterology referral. No operating machinery or driving today. Return if worse or any questions or concerns. No fried fatty greasy foods or spicy foods or carbonated drinks. Prescriptions: New hydrocodone-acetaminophen 5-325 mg tablet 1 tab PO Q6H PRN (Reason: pain) Qty: 10 RF: 0 ondansetron 4 mg tablet,disintegrating 4 mg PO Q8H PRN (Reason: nausea and vomiting) Qty: 10 RF: 0 sucralfate [Carafate] 1 gram tablet 1 g PO BID Qty: 20 RF: 0 No Action ondansetron 4 mg tablet,disintegrating 4 mg PO Q6H PRN (Reason: nausea and vomiting) Qty: 14 RF: 0 hydrocodone-acetaminophen 5-325 mg tablet 1 tab PO Q4-6H PRN (Reason: pain) Qty: 10 RF: 0 pantoprazole [Protonix] 40 mg tablet,delayed release (DR/EC) 40 mg PO DAILY Qty: 30 RF: 0 hyoscyamine sulfate 0.125 mg tablet 0.125 mg PO BID-QID PRN (Reason: dyspepsia) Qty: 20 RF: 0 ondansetron 4 mg tablet,disintegrating 4 mg PO TID-QID PRN (Reason: nausea and vomiting) Qty: 10 RF: 0
[2020-09-08] MEDS: MORPHINE 4 MG/ML INJ IV (11:13)
[2020-09-08] MEDS: SODIUM CHLORIDE 0.9% 1,000 ML 1000 ML IV ×2 (11:14→13:23)
[2020-09-08] MEDS: ONDANSETRON 4 MG/2 ML INJ IV (11:14)
[2020-09-08 11:29] LABS: Add Manual Diff / Slide Review NO; Basophils Absolute Auto 100 /uL (0-100); Basophils Percent Auto 0.4 % (0-2); Eosinophils Absolute Auto 200 /uL (0-450); Eosinophils Percent Auto 1.1 % (2-4); Hematocrit 51.1 % (41-53); Hemoglobin 17.1 g/dL (13.5-17.5); Lymphocytes Absolute Auto 900 /uL (1100-4500); Lymphocytes Percent Auto 6.9 % (25-40); Mean Corpuscular HGB Conc 33.5 % (30-36); Mean Corpuscular Hemoglobin 29.6 PG (26-34); Mean Corpuscular Volume 88.3 fL (80-100); Monocytes Absolute Auto 600 /uL (0-900); Monocytes Percent Auto 4.4 % (3-14); Neutrophils Absolute Auto 11700 /uL (1500-7000); Neutrophils Percent Auto 87.2 % (50-75); Platelet Count 236 X10^3/uL (150-400); Red Blood Cell Count 5.79 X10^6/uL (4.5-5.9); White Blood Cell Count 13.4 X10^3/uL (4.5-11.0)
[2020-09-08 12:34] LABS: Alanine Aminotransferase 73 IU/L (<50); Albumin 4.3 g/dL (3.5-5.0); Albumin Globulin Ratio 1.4 (1.0-2.8); Alkaline Phosphatase 64 U/L (38-126); Aspartate Aminotransferase 44 IU/L (17-59); BUN Creatinine Ratio 25.3 (6-22); Bilirubin Total 0.4 mg/dL (0.2-1.3); Blood Urea Nitrogen 21 mg/dL (9-20); Calcium 9.2 mg/dL (8.4-10.2); Carbon Dioxide 27 mmol/L (22-32); Chloride 107 mmol/L (98-107); Estimated Glomerular Filt Rate > 60.0 mL/min (>60); Globulin 3.1 g/dL (1.7-4.1); Glucose 110 mg/dL (70-100); HEMOLYSIS < 15 (0-50); Lipase 264 U/L (23-300); Sodium 141 mmol/L (137-145); Total Protein 7.4 g/dL (6.3-8.2)
[2020-09-08 12:35] LABS: Potassium 5.2 mmol/L (3.4-5.1)
[2020-09-08 13:33] VITALS: BP 109/67; PULSE 65; RESP 17; O2SAT 99
== END 2020-09-08 14:43 | disposition home or self-care (01) ==
PROVIDERS: Emergency Provider Emergency Medicine
DX: R10.9 Unspecified abdominal pain (principal); R11.2 Nausea with vomiting, unspecified; R19.7 Diarrhea, unspecified
CPT/HCPCS: 36415; 80053; 83690; 85025; 96361; 96374; 96375; 99284; J2270; J2405

== ENCOUNTER → 2020-10-31 14:06 | Outpatient (CLI) | payer OTHER, SELFPAY ==
--- NOTE | 2020-10-31 14:09 | DI.US.S_ITS ---
PROCEDURE: US ABDOMEN LIMITED INDICATIONS: Abnormal results of liver function studies TECHNIQUE: Real-time focused scanning was performed of the abdomen, with image documentation. COMPARISON: [facility], CT, CT ABDOMEN PELVIS W CON, 08/26/2020, 1:20. [facility] Ultrasound, US, US ABDOMEN COMPLETE, 10/31/2020, 10:47. FINDINGS: The liver demonstrates increased size. The liver demonstrates generalized moderately increased echogenicity. This decreases ultrasound sensitivity for detection of hepatic masses. No findings of gallstones or sludge are seen. The gallbladder wall is not thickened, measuring 3 mm or less. No specific pericholecystic fluid is seen. The sonographic [place] sign is negative. There is no biliary dilatation, the common bile duct measures 5 mm. No significant pancreatic abnormality is seen on these images. IMPRESSION: The liver demonstrates increased echogenicity. This finding is nonspecific, yet it is most commonly attributed to fatty infiltration. Dictated by: Jose Ziegler M.D. on 11/01/2020 at 10:22 Approved by: Jose Ziegler M.D. on 11/01/2020 at 10:23
== END ==
PROVIDERS: PCP Internal Medicine; Referring Provider Nurse Practitioner Family; Visit Provider Nurse Practitioner Family
DX: R94.5 Abnormal results of liver function studies (principal)
CPT/HCPCS: 76705

== ENCOUNTER → 2022-12-30 10:44 | Outpatient (CLI) | payer OTHER, SELFPAY ==
--- NOTE | 2022-12-30 | DI.CT.S_ITS ---
PROCEDURE: CT ABDOMEN PELVIS W CON INDICATIONS: ABD PAIN, NAUSEA, VOMITING,DIARRHEA TECHNIQUE: After the administration of oral and IV contrast, axial sections were acquired from the lung bases to the pubic symphysis. Coronal and sagittal reformats were performed. For radiation dose reduction, the following was used: automated exposure control, adjustment of mA and/or kV according to patient size. COMPARISON: [facility], MR, MR LUMBAR SPINE WITHOUT CONTRAST, 10/28/2021, 10:44. [facility], CT, CT ABDOMEN PELVIS W CON, 08/26/2020, 1:20. FINDINGS: Image quality: Excellent. Lung bases: Unremarkable. Heart: No significant findings. ABDOMEN: Liver: Diffuse fatty liver infiltration is noted. Gallbladder: Unremarkable. Biliary ducts: Unremarkable. Pancreas: Unremarkable. Spleen: Unremarkable. Adrenal Glands: Unremarkable. Kidneys and Ureters: Unremarkable. Stomach and Bowel: Stomach, small bowel loops, and colon are unremarkable. No significant appendix abnormality is seen. No significant change from the prior. Peritoneum: No abnormal intraperitoneal fluid. No free air. Ventral Wall: No hernia. Abdominal Nodes: No retroperitoneal or mesenteric adenopathy by size criteria. Vessels: Aorta and inferior vena cava are normal in size. PELVIS: Pelvic Organs: Unremarkable. Bladder: Unremarkable. Pelvic Nodes: No enlarged lymph nodes. Miscellaneous: There is a fat containing left inguinal hernia. Bones: Age-appropriate bony degenerative changes are seen. IMPRESSION: No imaging explanation is found for this patient's presenting symptoms. No dilated loops of small bowel can be seen. Normal appearing colon. No significant abnormality of the appendix. Additional findings: Fatty liver infiltration Fat containing left inguinal hernia Dictated by: Jose Ziegler M.D. on 12/30/2022 at 16:20 Approved by: Jose Ziegler M.D. on 12/30/2022 at 16:24
== END ==
PROVIDERS: PCP Internal Medicine; Referring Provider Physician Assistant; Visit Provider Physician Assistant
DX: K40.90 Unilateral inguinal hernia, without obstruction or gangrene, not specified as recurrent (principal); K76.0 Fatty (change of) liver, not elsewhere classified; Z12.11 Encounter for screening for malignant neoplasm of colon; R19.5 Other fecal abnormalities; R10.84 Generalized abdominal pain; R19.4 Change in bowel habit; R11.2 Nausea with vomiting, unspecified
CPT/HCPCS: 74177; Q9967

== ENCOUNTER → 2023-08-24 09:12 | Outpatient (CLI) | payer OTHER, SELFPAY ==
[2023-08-24 09:59] LABS: Add Manual Diff / Slide Review NO; Basophils Absolute Auto 0 /uL (0-100); Basophils Percent Auto 0.9 % (0-2); Eosinophils Absolute Auto 200 /uL (0-450); Eosinophils Percent Auto 4.6 % (2-4); Hematocrit 45.3 % (41-53); Hemoglobin 15.4 g/dL (13.5-17.5); Lymphocytes Absolute Auto 1800 /uL (1100-4500); Lymphocytes Percent Auto 32.8 % (25-40); Mean Corpuscular Hemoglobin 30.3 PG (26-34); Mean Corpuscular Volume 89.2 fL (80-100); Monocytes Absolute Auto 600 /uL (0-900); Neutrophils Absolute Auto 2700 /uL (1500-7000); Neutrophils Percent Auto 50.7 % (50-75); Platelet Count 228 X10^3/uL (150-400); Red Blood Cell Count 5.08 X10^6/uL (4.5-5.9); Red Cell Distribution Width 13.9 % (11.6-14.8); White Blood Cell Count 5.4 X10^3/uL (4.5-11.0)
[2023-08-24 10:34] LABS: Alanine Aminotransferase 91 IU/L (<50); Albumin 4.5 g/dL (3.5-5.0); Albumin Globulin Ratio 1.4 (1.0-2.8); Alkaline Phosphatase 65 U/L (38-126); Aspartate Aminotransferase 48 IU/L (17-59); BUN Creatinine Ratio 31.6 (6-22); Bilirubin Direct 0.3 mg/dL (0.0-0.4); Bilirubin Total 0.5 mg/dL (0.2-1.3); Blood Urea Nitrogen 24 mg/dL (9-20); Calcium 9.3 mg/dL (8.4-10.2); Carbon Dioxide 27 mmol/L (22-32); Chloride 106 mmol/L (98-107); Estimated Glomerular Filt Rate > 60 mL/min (>60); Globulin 3.3 g/dL (1.7-4.1); Glucose 107 mg/dL (70-100); HEMOLYSIS < 15 (0-50); Potassium 4.4 mmol/L (3.4-5.1); Sodium 140 mmol/L (137-145); Total Protein 7.8 g/dL (6.3-8.2)
== END ==
LOC: LAB 09:14
PROVIDERS: PCP Internal Medicine; Referring Provider Internal Medicine Gastroenterology; Visit Provider Internal Medicine Gastroenterology
DX: R19.7 Diarrhea, unspecified (principal); R11.2 Nausea with vomiting, unspecified
CPT/HCPCS: 36415; 80053; 82248; 85025

== ENCOUNTER 2024-05-18 09:45 | Outpatient (RCR) | payer OTHER, SELFPAY ==
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
== END 2024-05-26 09:31 | disposition home or self-care (01) ==
LOC: PHYS 09:45
PROVIDERS: Family Provider Student in an Organized Health Care Education/Training Program; PCP Internal Medicine; Referring Provider Student in an Organized Health Care Education/Training Program; Visit Provider Student in an Organized Health Care Education/Training Program
DX: M25.519 Pain in unspecified shoulder (principal)
CPT/HCPCS: 97110; 97140; 97163; 97530; 97535

== ENCOUNTER 2025-03-15 15:15 | Outpatient (RCR) | payer OTHER, SELFPAY ==
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
--- NOTE | 2024-12-26 18:25 | PT.OPPOC ---
Addendum entered and electronically signed by Rosey Harper, PT 12/26/24 18:30: POC sent Original Note: Physical, Occupational & Speech Therapy At [facility] Current Diagnoses Vertebrogenic low back pain (12/25/24) Visit Care Team Role Provider Type Karma Berrios MD Attending Provider Non-Staff Family Provider Referring Provider Specialty: Medical Address: [facility] [address], [address], [address] Email: Plan Of Care PT OP: Lower Back/Extremity Start: 12/25/24 11:35 Freq: Status: Active Protocol: Document 12/25/24 13:48 [facility] (Rec: 12/25/24 14:34 [facility] [id number]) Out-Patient Physical Therapy Visit Information Visit Information Visit Type Initial Evaluation Visit Start Time 13:50 Visit Stop Time 14:33 Visit Number 1 Number of LUMBER CHAIN OFFBEARER Visits 0 Current Condition History of Current Condition Onset Date about 2009 Current Complaints LBP L>R w/ symptoms in LLE History of Current Pt has herniated discs in LB. Does have hx of neck pain Condition and did PT with good success. He just got back from a trip and that flared up his neck and has had FISCHER. 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 Some narrowing of discs and knows he has bulging discs throughout spine. LBP for at least 15 years. Does see pain management regularly. Occasionally does LB dry needling and botox to LB and some trigger point work about every 6 weeks. If it is botox it is every 3 months. has done PT for LB in the past and it does help. L L5 to S1 has what sounds like potential sacralization. In [place], took many hits from head down. Did fall down to LLE from rope. Does ahve some weird feelings in legs. Gets numb in L ant thigh wrapping around from the buttocks. Walks funny d/t ankle. tightness that goes around L side like belt. Has GERD and gets a stabbing pain at solar pelxis. Has constipation mostly and occasional diahrea in the past. He has seen multiple GI specialists. He does try to stay on a usual schedule and diet that does help his GI system. He has a tender r heel right now too. Back does get pinched with lots of walking (about 1-2 miles) and standing. rest feels the best. Burning lat calves Treatment Goals Patient/Caregiver easier time doing yard work, be able to walk/hike Goals distance especially w/hills, be able play with the boys Patient Questionnaires Neck Disability Index NDI Score 34% Balance Tests Single Limb Standing Single Limb- Right >30 sec Single Limb- Left inc deviation > 30 sec OP Gait Assessment Comments Gait Comments dec stance time LLE, dec lumbar motion Posture Evaluation Jennifer Postural Classification System Jennifer Postural Posterior/Anterior Classifications Vertical Compression 2 Test Elbow Flexion Test 1 Lumbar Protective 0 Mechanism Left AP Lumbar Protective 0 Mechanism Right AP Lumbar Protective 1 Mechanism Left PA Comments Posture Comments rearfoot valgus L, IR L>R femur, L tibia IR , L pelvis elevated, equal leg length, inc kyphosis, fwd head Lumbar Spine Range of Motion Lumbar Spine Active Percentage Flexion 90 Extension 80 Rotation Left 60 Rotation Right 75 Lateral Flexion Left 75 Lateral Flexion 75 Right Comments pain R sacrum w/R SB, pull contra w/SB and w/flex, pain in L w/L rot Special Tests Lumbar Spine Special Tests SLR Test Results B HS tightness Yrn Test Results B hip flexor tightness Slump Test Results neg slump; mild tightness in HS B ext sit Hip Strength Hip Manual Muscle Testing Right Flexion (L2) 4- Good- Extension (S1) 4- Good- Abduction 5 Normal Adduction 5 Normal External Rotation 5 Normal Internal Rotation 5 Normal Left Flexion (L2) 4- Good- Extension (S1) 4+ Good+ Abduction 5 Normal Adduction 5 Normal External Rotation 5 Normal Internal Rotation 5 Normal Knee Strength Knee Manual Muscle Testing Right Flexion (S2) 5 Normal Extension (L3) 5 Normal Left Flexion (S2) 5 Normal Extension (L3) 5 Normal Ankle/Foot Strength Ankle and Foot Manual Muscle Testing Right Dorsiflexion (L4) 5 Normal Plantarflexion (S1) 5 Normal Comments 20 heel raises B Left Dorsiflexion (L4) 5 Normal Plantarflexion (S1) 5 Normal Therapeutic Exercises Supine Exercises isometric Supine Exercise Name DL flex isometric Side bilateral Reps/Minutes 30 sec Self-Care/Home Management Treatment Education Other Education 10 min: edu to pt on importance of posture and stretching consistently along w/core weakness found causing back pain and innominate dysfunction. discussed potential visceral restrictions related to his pain Physical Therapy Assessment Rehab Potential Rehabilitation Good Potential Evaluation Complexity Number of Personal 3 or More Factors/ Comorbidities Number of Body 4 or More Systems Impaired Clinical Evolving Presentation at Evaluation Impairments Impairments Activity Tolerance,Balance,Functional Activities, Functional Mobility,Gait,Pain,ROM,Soft Tissue Mobility, Strength Goals posture Motor Hotel Manager Goal (LTG) Pt will score at least 4/5 on VCT to show improved posture in order to allow pt to do standing tasks for longer w/o inc pain LTG Duration 03/25 activity Nursing Home Goal (LTG) Pt will be able to return to doing longer walks w/hills and playing with his kids w/o back pain greater than 2 /10. LTG Duration 03/22 strength Short Term Goal (STG Pt will be indep w/HEP w/o cues to show self ability to ) help manage pain. STG Duration 02/12 Nursing Home Goal (LTG) pt will score at least 4+/5 on BLE MMT and at least 3/5 LPM and EFT to show improved stability to allow pt to do more house work LTG Duration 03/25 Assessment Summary Assessment Pt presents w/chronic LBP which is now also radiating into L ant thigh and dec sensation in lower leg. He has weakness of BLE and core which likely contributes to his pain. He has dec ROM and pain w/inc activity which limits him from full activities w/his kids and family and doing housework. 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 His dec flexibility also. He has had multiple injuries in his career that likely contribute to his pain. He would benefit from skilled PT to work on strength, balance and mobility to dec pain. Physical Therapy Plan Frequency and Duration Frequency of 2x/Week Treatment Duration of 12 treatment (weeks) Plan of Care Start 12/25/24 Date Plan of Care End 03/25/25 Date Therapeutic Interventions Therapeutic Balance Training,Gait Training,Home Exercise Program, Interventions Joint Mobilizations,Manual Therapy,Neuromuscular Re- education,Orthotic/Prosthetic Management,Self-Care/Home Management,Soft Tissue Mobilization,Taping,Therapeutic Activities,Therapeutic Exercises Modalities Cold Pack/Ice Massage,Electric Stimulation,Hot Packs, Traction- Mechanical Next Visit Focus/Plan Next Note Type Treatment Note Next Visit Plan review exercise, core stability exercises, open book, foam roll exercises, cat/cow, hip flexor stretch, manual to hips, lumbar, innominate and LLE to improve alignment Plan of Care Dates Plan of Care Start Date 12/25/24 Plan of Care End Date 03/25/25 Electronically Signed by: Rosey Harper, PT 12/26/24 2746 If you are in agreement with this Plan of Care, please return a signed and dated copy. I have reviewed this Plan of Care and certify that the skilled therapy services above are required to meet the patient?s needs. Physician Signature Date Printed Name and Credentials Clinical Instructor Signature Printed Name and Credentials
--- NOTE | 2024-12-28 18:53 | PT.OTN ---
Current Diagnoses Vertebrogenic low back pain (12/28/24) Physical Therapy Treatment Note PT OP: Lower Back/Extremity Start: 12/25/24 11:35 Freq: Status: Active Protocol: Document 12/28/24 14:36 [facility] (Rec: 12/28/24 18:51 [facility] [id number]) Out-Patient Physical Therapy Visit Information Visit Information Visit Type Treatment Note Visit Start Time 14:37 Visit Stop Time 15:15 Visit Number 2 Number of DIRECTOR OF CASINO Visits 0 OP-PT Subjective Patient Comments Patient Comments He has a 2 week gap with PTand is on the WL. Had pain management yesterday and had LB and neck botox and dry needling Therapeutic Exercises Supine Exercises bridge Supine Exercise Name 1.DL 2. SL Side bilateral Reps/Minutes 10 ea Comments cues segmental isometric Supine Exercise Name DL flex isometric Side bilateral Reps/Minutes 30 sec Comments cues chin tuck Prone Exercises push up Prone Exercise Name on knees w/hands on wts Side bilateral Reps/Minutes 2x5 Comments inc time to work on plank form plank Side bilateral Reps/Minutes 15 sec x2 Comments inc time to work on form Standing Exercises ext Standing Exercise shoulder ext Name Side bilateral Equipment Used L3 band Reps/Minutes 15 Comments cues core paloff press Side bilateral Equipment Used 2 lvl 3 bands Reps/Minutes 15 ea Comments cues neutral spine Manual Therapy Treatment Consent Patient gave verbal Yes consent for manual treatment Joint Mobilizations hip Comments B hip on axis ER c/r; R inf glide C/r thoracic Comments PA c/r T 7 &9 rib Comments R rib 11 internal torsion c/r Physical Therapy Assessment Goals posture Documentation Manager Goal (LTG) Pt will score at least 4/5 on VCT to show improved posture in order to allow pt to do standing tasks for longer w/o inc pain LTG Duration 03/25 activity Documentation Manager Goal (LTG) Pt will be able to return to doing longer walks w/hills and playing with his kids w/o back pain greater than 2 /10. LTG Duration 03/22 strength Short Term Goal (STG Pt will be indep w/HEP w/o cues to show self ability to ) help manage pain. STG Duration 02/12 [facility] Goal (LTG) pt will score at least 4+/5 on BLE MMT and at least 3/5 LPM and EFT to show improved stability to allow pt to do more house work LTG Duration 03/25 Assessment Summary Assessment Limited manual to hips and thoracic d/t recent botox ( yesterday) but pt had imroved hip ROM w/manual w/dec tension. did well with progression of exercises w/o inc pain when cued. Physical Therapy Plan Frequency and Duration Frequency of 2x/Week Treatment Duration of 12 treatment (weeks) Plan of Care Start 12/25/24 Date Plan of Care End 03/25/25 Date Next Visit Focus/Plan Next Note Type Treatment Note Next Visit Plan review exercise, core stability exercises, open book, foam roll exercises, cat/cow, hip flexor stretch, manual to hips, lumbar, innominate and LLE to improve alignment
--- NOTE | 2025-01-09 09:49 | PT.OTN ---
Current Diagnoses Vertebrogenic low back pain (01/09/25) Physical Therapy Treatment Note PT OP: Lower Back/Lower Extremity Start: 12/25/24 11:35 Freq: Status: Active Protocol: Document 01/09/25 08:11 [facility] (Rec: 01/09/25 09:49 [facility] [id number]) Out-Patient Physical Therapy Visit Information Visit Information Visit Type Treatment Note Visit Start Time 09:01 Visit Stop Time 09:41 Visit Number 3 Number of DEPUTY K 9 Visits 0 Progress Note Due 01/24/25 OP-PT Subjective Patient Comments Patient Comments Pt reports past week his shoulder blade L was lit up. He laid off the push ups because of this. about a 2/10 getting out of the car. Therapeutic Exercises Supine Exercises bridge Supine Exercise Name SL Side bilateral Reps/Minutes 5 ea Comments cues knees bent isometric Supine Exercise Name DL flex isometric Side bilateral Reps/Minutes 30 sec Comments cues no rounded shoulders and breath Prone Exercises push up Prone Exercise Name at doorway standing today Side bilateral Reps/Minutes 8 Comments cues neutral neck and spine plank Prone Exercise Name on knees w/hands on wts Side bilateral Reps/Minutes 15 sec Comments stopped d/t pain Sidelying Exercises open book Side bilateral Reps/Minutes 8 Comments cues thoracic rotation Standing Exercises ext Standing Exercise shoulder ext Name Side bilateral Equipment Used L3 band Reps/Minutes 10 Comments cues core and no UT lift paloff press Side bilateral Equipment Used 2 lvl 3 bands Reps/Minutes 8 ea Comments cues neutral spine and no shrug of shoulders Manual Therapy Treatment Consent Patient gave verbal Yes consent for manual treatment Soft Tissue Mobilization lumbar Body Location ES and QL Mobilization Type Rolling Intensity/Depth Moderate Body Position Prone Joint Mobilizations innominate Comments caudal L w/LTR sacrum Comments UPA percussion L ; caudal w/LTR lumbar Comments L UPA L 5 and percussion hip Comments B inf c/r ; hip on axis ER L c/r w/manual facilitation end range ER thoracic Comments percussion UPA R t6 and 9 Physical Therapy Assessment Goals posture Care Home Goal (LTG) Pt will score at least 4/5 on VCT to show improved posture in order to allow pt to do standing tasks for longer w/o inc pain LTG Duration 03/25 activity Care Home Goal (LTG) Pt will be able to return to doing longer walks w/hills and playing with his kids w/o back pain greater than 2 /10. LTG Duration 03/22 strength Short Term Goal (STG Pt will be indep w/HEP w/o cues to show self ability to ) help manage pain. STG Duration 02/12 Conductor Symphonic Orchestra Goal (LTG) pt will score at least 4+/5 on BLE MMT and at least 3/5 LPM and EFT to show improved stability to allow pt to do more house work LTG Duration 03/25 Assessment Summary Assessment Pt did well with HEP program with min cues for positioning. Encouraged to do open book for more spinal mobility. adjusted push up to doorway d/t inc pain in scap after knee push up. Reports relief w/manual. Physical Therapy Plan Frequency and Duration Frequency of 2x/Week Treatment Duration of 12 treatment (weeks) Plan of Care Start 12/25/24 Date Plan of Care End 03/25/25 Date Next Visit Focus/Plan Next Note Type Treatment Note Next Visit Plan review exercise, core stability exercises, foam roll exercises, cat/cow, hip flexor stretch, manual to hips, lumbar, innominate and LLE to improve alignment
--- NOTE | 2025-01-12 14:31 | PT.OTN ---
Current Diagnoses Vertebrogenic low back pain (01/12/25) Physical Therapy Treatment Note PT OP: Lower Back/Lower Extremity Start: 12/25/24 11:35 Freq: Status: Active Protocol: Document 01/12/25 13:47 SP (Rec: 01/12/25 14:50 SP [id number]) Out-Patient Physical Therapy Visit Information Visit Information Visit Type Treatment Note Visit Start Time 13:47 Visit Stop Time 14:31 Visit Number 4 Number of SCHEDULING AGENT Visits 1 Progress Note Due 01/24/25 OP-PT Subjective Patient Comments Patient Comments Pt arrives with new fred urrutia. He felt great after last tx. He reports next day achilles sore R>L today unsure if did to long wall push up stretch last PT or home carryover, want to address this today if can , then continue LB manual and review ex. He is seeing pain mgt: dry needling and botox in low back. Therapeutic Exercises Supine Exercises bridge Supine Exercise Name SL Side bilateral Reps/Minutes 2x5 ea Comments cues knees bent, good neutral pelvis & TA engagement isometric Supine Exercise Name DL flex isometric Side bilateral Reps/Minutes 30 sec Comments cues no rounded shoulders and breath Prone Exercises CS SNAGS Prone Exercise Name Reviewed- rotation Equipment Used towel assist Reps/Minutes 10 sec x4 Comments decrease tension in neck that lessens tension in back. plank Prone Exercise Name incline on off table: feet/forearms Side bilateral Reps/Minutes 20 sec Comments cued allow heel lift, TA draw in with PPT neutral- no pain Sitting Exercises Fig 4 Side bilateral Equipment Used long sit on floor Reps/Minutes during achilles MWM self performance Comments cues posture, CARPENTER SUPERVISOR & TA- challenge with hip R>L flexibility flexion & ER Other Exercises self STMs Other Exercise Name ball rolling and MWM: calf & achilles Side bilateral Resistance R>L Equipment Used long sit on floor 1 UE propped Comments challenged with long sit Fig 4 to get to achilles- improved hip mobility to Manual Therapy Treatment Consent Patient gave verbal Yes consent for manual treatment Soft Tissue Mobilization legs Body Location R>L calf and achilles Mobilization Type Rolling,Sustained Pressure,Other Body Position Prone Comments manual STMs and MWM ankle ROM, ed self rolling and MWM with ball long sitting and pincer grasp achilles MWM ankle discussion then instruct performance. lumbar Body Location ES and QL Mobilization Type Rolling Intensity/Depth Moderate Body Position Prone Comments STMs, ed self massage use ball wall Joint Mobilizations innominate Comments caudal L w/LTR hip Comments B inf c/r ; hip on axis ER L c/r w/manual facilitation end range ER Self-Care/Home Management Treatment Education Patient Education Body Mechanics,Home Exercise Program,Joint Protection, Pain Management,Posture,Safety Other Education much ed during manual and how self STMs with proper form and back/hip alignment, use of opp UE for kickstand support but sit on level pelvis, verbalized underastanding. Physical Therapy Assessment Goals posture Manager Financial Planning Goal (LTG) Pt will score at least 4/5 on VCT to show improved posture in order to allow pt to do standing tasks for longer w/o inc pain LTG Duration 03/25 activity Senior Care Goal (LTG) Pt will be able to return to doing longer walks w/hills and playing with his kids w/o back pain greater than 2 /10. LTG Duration 03/22 strength Short Term Goal (STG Pt will be indep w/HEP w/o cues to show self ability to ) help manage pain. STG Duration 02/12 Manager Financial Planning Goal (LTG) pt will score at least 4+/5 on BLE MMT and at least 3/5 LPM and EFT to show improved stability to allow pt to do more house work LTG Duration 03/25 Assessment Summary Assessment Pt improved achilles, low back and hip R>L flexibility after manual and education stretch and self STMs lower legs that could reach/ bend down sitting in chair and tie shoes without any back tension. DIscussed but not given HO, stated can remember STM ball calf, and hip ER fig 4 only if back feels ok due to can compermise to much tension on back if so do stretch seated in chair. Physical Therapy Plan Frequency and Duration Frequency of 2x/Week Treatment Duration of 12 treatment (weeks) Plan of Care Start 12/25/24 Date Plan of Care End 03/25/25 Date Therapeutic Interventions Therapeutic Balance Training,Gait Training,Home Exercise Program, Interventions Joint Mobilizations,Manual Therapy,Neuromuscular Re- education,Orthotic/Prosthetic Management,Self-Care/Home Management,Soft Tissue Mobilization,Taping,Therapeutic Activities,Therapeutic Exercises Modalities Cold Pack/Ice Massage,Electric Stimulation,Hot Packs, Traction- Mechanical Next Visit Focus/Plan Next Note Type Treatment Note Next Visit Plan REview HEP including modified plank, check self STMs helped, POC continue: core stability exercises, foam roll exercises, cat/cow, hip flexor stretch, manual to hips, lumbar, innominate and LLE to improve alignment
--- NOTE | 2025-01-16 10:30 | PT.OTN ---
Current Diagnoses Vertebrogenic low back pain (01/16/25) Physical Therapy Treatment Note PT OP: Lower Back/Lower Extremity Start: 12/25/24 11:35 Freq: Status: Active Protocol: Document 01/16/25 09:50 SP (Rec: 01/16/25 10:39 SP [id number]) Out-Patient Physical Therapy Visit Information Visit Information Visit Type Treatment Note Visit Start Time 09:50 Visit Stop Time 10:30 Visit Number 5 Number of PSYCHIATRY TEACHER Visits 2 Progress Note Due 01/24/25 OP-PT Subjective Patient Comments Patient Comments Pt reports feels pretty good arrival and after PT last tx. Cardio Equipment Elliptical Resistance DC 01/16/25 Other unable, lacking L ankle DF ROM, compensates L lateral thigh Recumbent Stepper (Sci-Fit) Duration (Minutes) 6 Resistance 4 Seat Position 15 Other BLEs, BUEs: 45-50 RPMs Bicycle (Upright) Other not working today Gym Equipment Therapeutic Ball Tball Exercise Details LTR, Bridge (ball at ankle/torres), HS bridge Ball Size/Color 55cm tball Body Position Hooklying Therapeutic Exercises Supine Exercises Stretching Supine Exercise Name HS & ITB with strap- reviewed a past HEP in [place], Piriformis Side bilateral Equipment Used Strap: HS & ITB Reps/Minutes 60 sec each Comments Good feedback stretch bridge Supine Exercise Name SL Side bilateral Reps/Minutes 2x5 ea Comments cues knees bent, good neutral pelvis & TA engagement isometric Supine Exercise Name DL flex isometric Side bilateral Reps/Minutes 30 sec Comments cues no rounded shoulders and breath Prone Exercises plank Prone Exercise Name incline on off table: feet/forearms Side bilateral Reps/Minutes 60 Comments cued allow heel lift (good calf stretch), core quivering- no pain Standing Exercises paloff press Side bilateral Equipment Used 2 lvl 3 bands Reps/Minutes 8 ea Comments cues neutral spine and no shrug of shoulders Neuro Re-Education Treatment Balance Activities Body Blade Details front press Comments little core and UE tiring BOSU Details Mini squat Comments for core, hip and ankle mobility- easy bal but limited L ankle mobiltiy into DF, so DC 01/16/25 Physical Therapy Assessment Goals posture Residential Goal (LTG) Pt will score at least 4/5 on VCT to show improved posture in order to allow pt to do standing tasks for longer w/o inc pain LTG Duration 03/25 activity Aircraft Accessories Mechanic Goal (LTG) Pt will be able to return to doing longer walks w/hills and playing with his kids w/o back pain greater than 2 /10. LTG Duration 03/22 strength Short Term Goal (STG Pt will be indep w/HEP w/o cues to show self ability to ) help manage pain. STG Duration 02/12 Residential Goal (LTG) pt will score at least 4+/5 on BLE MMT and at least 3/5 LPM and EFT to show improved stability to allow pt to do more house work LTG Duration 03/25 Assessment Summary Assessment Pt good response to stretching and progressed core ther ex today, cues for TA and pelvic/postural alignment improved core tiring engagement especially over tball and incline plank. Ed continue home for progression back health strength. Pt has limitations in L ankle Jt that limits some mobiltiy, suggested potentially ankle rehab if needed in future. Physical Therapy Plan Frequency and Duration Frequency of 2x/Week Treatment Duration of 12 treatment (weeks) Plan of Care Start 12/25/24 Date Plan of Care End 03/25/25 Date Therapeutic Interventions Therapeutic Balance Training,Gait Training,Home Exercise Program, Interventions Joint Mobilizations,Manual Therapy,Neuromuscular Re- education,Orthotic/Prosthetic Management,Self-Care/Home Management,Soft Tissue Mobilization,Taping,Therapeutic Activities,Therapeutic Exercises Modalities Cold Pack/Ice Massage,Electric Stimulation,Hot Packs, Traction- Mechanical Next Visit Focus/Plan Next Note Type Treatment Note Next Visit Plan REview HEP including modified plank, bridge over tball, check self STMs helped, POC continue: core stability exercises, foam roll exercises, cat/cow, hip flexor stretch, manual to hips, lumbar, innominate and LLE to improve alignment
--- NOTE | 2025-01-18 10:45 | PT.OPPN ---
Current Diagnoses Vertebrogenic low back pain (01/18/25) Physical Therapy Progress Note PT OP: Lower Back/Lower Extremity Start: 12/25/24 11:35 Freq: Status: Active Protocol: Document 01/18/25 09:53 [facility] (Rec: 01/18/25 10:45 [facility] [id number]) Out-Patient Physical Therapy Visit Information Visit Information Visit Type Progress Note Visit Start Time 09:51 Visit Stop Time 10:31 Visit Number 6 Number of SPEECH WRITER Visits 0 Progress Note Due 02/17/25 OP-PT Subjective Patient Comments Patient Comments overall doing better and feels more limber. Still wants to progress w/push ups. neck and FISCHER what is mostly limiting Posture Evaluation Jennifer Postural Classification System Jennifer Postural Posterior/Anterior Classifications Vertical Compression 3 Test Elbow Flexion Test 2 Lumbar Protective 1 Mechanism Left AP Lumbar Protective 2 Mechanism Right AP Lumbar Protective 2 Mechanism Left PA Lumbar Protective 2 Mechanism Right PA Hip Strength Hip Manual Muscle Testing Right Flexion (L2) 4 Good Extension (S1) 4+ Good+ Abduction 5 Normal Adduction 5 Normal External Rotation 5 Normal Internal Rotation 5 Normal Left Flexion (L2) 4- Good- Extension (S1) 5 Normal Abduction 5 Normal Adduction 5 Normal External Rotation 5 Normal Internal Rotation 5 Normal Knee Strength Knee Manual Muscle Testing Right Flexion (S2) 5 Normal Extension (L3) 5 Normal Left Flexion (S2) 5 Normal Extension (L3) 5 Normal Therapeutic Exercises Supine Exercises Stretching Supine Exercise Name active HS stretch Side bilateral Reps/Minutes 10 sec x6 Sitting Exercises Fig 4 Sitting Exercise foam roll out w/figure 4 rotation Name Side right Reps/Minutes 3 min Standing Exercises stretch Standing Exercise hip flexor-attempted standing but mostly calf so 1/2 Name kneel Side left Reps/Minutes 1 min Manual Therapy Treatment Consent Patient gave verbal Yes consent for manual treatment Soft Tissue Mobilization hip Body Location L iliacus Mobilization Type Sustained Pressure Intensity/Depth Moderate Body Position Supine Comments gentle IR/ER Joint Mobilizations innominate Comments caudal L w/LTR; ER c/r and percussion L sacrum Comments caudal and L UPA w/percussion and LTR hip Joint hip on axis ER c/r B; L inf c/r Physical Therapy Assessment Goals posture Wwe Wrestler Goal (LTG) Pt will score at least 4/5 on VCT to show improved posture in order to allow pt to do standing tasks for longer w/o inc pain 01/18-3/5 LTG Duration 03/25 activity Retirement Goal (LTG) Pt will be able to return to doing longer walks w/hills and playing with his kids w/o back pain greater than 2 /10. 01/18-about 1 mile but ankle also limits LTG Duration 03/22 strength Short Term Goal (STG Pt will be indep w/HEP w/o cues to show self ability to ) help manage pain. STG Duration achieved 01/18 Wwe Wrestler Goal (LTG) pt will score at least 4+/5 on BLE MMT and at least 3/5 LPM and EFT to show improved stability to allow pt to do more house work 01/18-improving LTG Duration 03/25 Assessment Summary Assessment Pt did well with manual and reported significant relief in LB and L ant thigh discomfort. He enjoyed stretching activities and reports relief with these. He is improving w/PT with improving strength and noting improvements and feeling more mobility. Would cont to benefit from PT to address pain and lumbar mobility and stability to improve functional mobility. Physical Therapy Plan Frequency and Duration Frequency of 2x/Week Treatment Duration of 12 treatment (weeks) Plan of Care Start 12/25/24 Date Plan of Care End 03/25/25 Date Next Visit Focus/Plan Next Note Type Treatment Note
--- NOTE | 2025-01-25 14:32 | PT.OTN ---
Current Diagnoses Vertebrogenic low back pain (01/25/25) Physical Therapy Treatment Note PT OP: Lower Back/Lower Extremity Start: 12/25/24 11:35 Freq: Status: Active Protocol: Document 01/25/25 13:49 SP (Rec: 01/25/25 14:35 SP [id number]) Out-Patient Physical Therapy Visit Information Visit Information Visit Type Treatment Note Visit Start Time 13:49 Visit Stop Time 14:32 Visit Number 7 Number of RETAIL SALESMAN Visits 1 Progress Note Due 02/17/25 OP-PT Subjective Patient Comments Patient Comments Pt reports was OOT forgot TB for ex but did hiking and swinging garden tools. Little sore arrival. After last tx was little rough and sore anterior and lateral L thigh. Thinks manual was amazing loosening up. Feeling tightness L low back arrival. Posture Evaluation Comments Posture Comments Postural alignment 01/25/25: L ilium posterior rotated and flared in, L foot arch lifted more than R and L knee locked out looking Therapeutic Exercises Supine Exercises Stretching Supine Exercise Name Yrn Stretch, Fig 4 Side bilateral Equipment Used R stretch, L LB compensation Reps/Minutes 60 sec each Comments L anterior chain tension, R like jt block not able go further ext stretch bridge Supine Exercise Name SL Side bilateral Reps/Minutes 2x5 ea Comments cues knees bent, good neutral pelvis & TA engagement Standing Exercises HS curl Standing Exercise added to HEP (didnt give HO) Name Side left Resistance Tb #2 at ankles Equipment Used rail support Reps/Minutes 10 reps stretch Standing Exercise hip flexor-attempted standing but mostly calf so /2 Name kneel Side left Reps/Minutes 1 min Comments DC, reports past caused flare up in L thigh down to ankle- hold ? 01/25 Other Exercises self STMs Other Exercise Name ball roll glut, ES, QL Side bilateral Resistance R>L Equipment Used at wall Comments verbal review and verbalized understanding Manual Therapy Treatment Consent Patient gave verbal Yes consent for manual treatment Soft Tissue Mobilization hip Body Location L iliacus Mobilization Type Sustained Pressure Intensity/Depth Moderate Body Position Supine Comments gentle IR/ER lumbar Comments L QL, ES, paraspinal at ilium and closer to transverse att. Joint Mobilizations hip Joint hip anteromedial and posterlateral mobe with strap: Luis Physical Therapy Assessment Goals posture Snf Goal (LTG) Pt will score at least 4/5 on VCT to show improved posture in order to allow pt to do standing tasks for longer w/o inc pain 01/18-3/5 LTG Duration 03/25 activity Snf Goal (LTG) Pt will be able to return to doing longer walks w/hills and playing with his kids w/o back pain greater than 2 /10. 01/18-about 1 mile but ankle also limits LTG Duration 03/22 strength Short Term Goal (STG Pt will be indep w/HEP w/o cues to show self ability to ) help manage pain. STG Duration achieved 01/18 Snf Goal (LTG) pt will score at least 4+/5 on BLE MMT and at least 3/5 LPM and EFT to show improved stability to allow pt to do more house work 01/18-improving LTG Duration 03/25 Assessment Summary Assessment Pt improvement in spinal and pelvic mobility post manual, education self Stms use ball on wall. Cues for TA and glut engagement during SL bridge for re- ed activation new alignment positioning with noted weakness but improved form without pain. Incorporated HS curls on L to increase strength to support c/o reduction L knee locking. Pt would benefit from continued full body alignment assessment to see where compensations and weakness for better abdominal and low back support to give abiltiy to get on/off floor with ease and pick pack worker items without pain or limitations in range. Physical Therapy Plan Frequency and Duration Frequency of 2x/Week Treatment Duration of 12 treatment (weeks) Plan of Care Start 12/25/24 Date Plan of Care End 03/25/25 Date Therapeutic Interventions Therapeutic Balance Training,Gait Training,Home Exercise Program, Interventions Joint Mobilizations,Manual Therapy,Neuromuscular Re- education,Orthotic/Prosthetic Management,Self-Care/Home Management,Soft Tissue Mobilization,Taping,Therapeutic Activities,Therapeutic Exercises Modalities Cold Pack/Ice Massage,Electric Stimulation,Hot Packs, Traction- Mechanical Next Visit Focus/Plan Next Note Type Treatment Note Next Visit Plan assess body alignment, see assessment suggestions REview HEP including modified plank, bridge over tball, check self STMs helped, POC continue: core stability exercises, foam roll exercises, cat/cow, hip flexor stretch, manual to hips, lumbar, innominate and LLE to improve alignment
--- NOTE | 2025-01-31 12:20 | PT.OTN ---
Current Diagnoses Vertebrogenic low back pain (01/31/25) Physical Therapy Treatment Note PT OP: Lower Back/Lower Extremity Start: 12/25/24 11:35 Freq: Status: Active Protocol: Document 01/31/25 11:34 SP (Rec: 01/31/25 12:37 SP [id number]) Out-Patient Physical Therapy Visit Information Visit Information Visit Type Treatment Note Visit Start Time 11:34 Visit Stop Time 12:20 Visit Number 8 Number of CONTINUITY READER Visits 2 Progress Note Due 02/17/25 OP-PT Subjective Patient Comments Patient Comments Pt reports feeling pretty good today, maybe little tension discomfort posterolateral L hip but feeling taller and standing more equal on BLEs midline. Therapeutic Exercises Standing Exercises stretch Standing Exercise hip flexor: TFL- good feedback stretch post self manual Name over balls Side left Equipment Used wall support lunge stance Reps/Minutes 15-30 sec hold Comments cued hip IR foot position, allow heel lift with forward wt shift fwd RLE Other Exercises self STMs Other Exercise Name Glut Max/lateral sacrum Side bilateral Resistance R>L Equipment Used at wall Comments verbal review and verbalized understanding Manual Therapy Treatment Consent Patient gave verbal Yes consent for manual treatment Soft Tissue Mobilization hip Body Location Bilateral vs unilateral: glut max at lateral sacrum vs inferior ilium (SI) Mobilization Type Instrument Assisted,Sustained Pressure,Trigger Point Release Intensity/Depth Moderate Body Position Hooklying Comments Instruction self: racquetball trigger point release vs Miracle ball relax, allow LB suspend stretch off back side of miracle ball. Good anterior hip release as well vs just posterior. lumbar Body Location Luis: ES, prox lat Mobilization Type Instrument Assisted Comments cupping in child's pose positioning: sustained hold vs glide, ed use silicone cups Joint Mobilizations hip Joint Luis: hip anteromedial and posterlateral mobe with strap Comments used pt phone video for self set up and dircection home. Self-Care/Home Management Treatment Education Patient Education Body Mechanics,Home Exercise Program,Joint Protection, Pain Management,Safety Other Education Instruction of self STMs, trigger point release, and hip mobes with racquetball vs miracle ball vs use yoga strap anteromedial and postterolateral isometric hold with breath. Improved SI and little inferior pelvis musculature releases with almost no pain in hips and back. Discussion self STM over prox HS ball under and sit ontop sustained pressure vs adding LAQ for MWM. Verbalized understanding lateral for lessening potential other muscle limiting L >R hip mobility. Physical Therapy Assessment Goals posture Traveling Inventory Associate Goal (LTG) Pt will score at least 4/5 on VCT to show improved posture in order to allow pt to do standing tasks for longer w/o inc pain 01/18-3/5 LTG Duration 03/25 activity Traveling Inventory Associate Goal (LTG) Pt will be able to return to doing longer walks w/hills and playing with his kids w/o back pain greater than 2 /10. 01/18-about 1 mile but ankle also limits LTG Duration 03/22 strength Short Term Goal (STG Pt will be indep w/HEP w/o cues to show self ability to ) help manage pain. STG Duration achieved 01/18 Correction Goal (LTG) pt will score at least 4+/5 on BLE MMT and at least 3/5 LPM and EFT to show improved stability to allow pt to do more house work 01/18-improving LTG Duration 03/25 Assessment Summary Assessment Pt had significant R hip and low back mobility post manual and ed instruction self application use racquetball vs miracle ball and yoga/mobility strap with video calling out instruction of set up and direction performance stretch. Improved decreased hip flexor tightness and allowance to perform TFL stretch and cupping little myofascial tension LS erector/ prox lat. into child's pose positioning that was left at end of tx. Pt staated no pain in back or hips end of tx, verbalized understanding tools used today for self purchase and help self relief carryover home. Discussed perform resisted HEP when get home to now work around area for reinforcement new hip/back positioning. Physical Therapy Plan Frequency and Duration Frequency of 2x/Week Treatment Duration of 12 treatment (weeks) Plan of Care Start 12/25/24 Date Plan of Care End 03/25/25 Date Therapeutic Interventions Therapeutic Balance Training,Gait Training,Home Exercise Program, Interventions Joint Mobilizations,Manual Therapy,Neuromuscular Re- education,Orthotic/Prosthetic Management,Self-Care/Home Management,Soft Tissue Mobilization,Taping,Therapeutic Activities,Therapeutic Exercises Modalities Cold Pack/Ice Massage,Electric Stimulation,Hot Packs, Traction- Mechanical Next Visit Focus/Plan Next Note Type Treatment Note Next Visit Plan REcheck MFR and ed self last tx if ok and can do self MWM HS with racquetball, LS erector/ prox lat.return to plank, REview HEP including modified plank, bridge over tball, check self STMs helped, POC continue: core stability exercises, foam roll exercises, cat/cow, hip flexor stretch, manual to hips, lumbar, innominate and LLE to improve alignment
--- NOTE | 2025-02-02 09:50 | PT.OTN ---
Current Diagnoses Vertebrogenic low back pain (02/02/25) Physical Therapy Treatment Note PT OP: Lower Back/Lower Extremity Start: 12/25/24 11:35 Freq: Status: Active Protocol: Document 02/02/25 09:02 SP (Rec: 02/02/25 09:51 SP [id number]) Out-Patient Physical Therapy Visit Information Visit Information Visit Type Treatment Note Visit Start Time 09:02 Visit Stop Time 09:50 Visit Number 9 Number of COMMUNITY ARTS CENTRE MANAGER Visits 2 Progress Note Due 02/17/25 OP-PT Subjective Patient Comments Patient Comments Pt reports the manual and use of miracle ball last tx and stretching anterior L thigh havent' been able to do in long time released well. GOing to get set miracle balls for home. Today little tension over distal L quad knee irritation. He was little sore in LS and L gluteal SI area arrival. Pt reports has to go OOT in 2 weeks for 1 week. WIll talk to schedulers and see if still seeing PT as needed during appts and approved scheduled. Therapeutic Exercises Supine Exercises bridge Supine Exercise Name SL Side bilateral Reps/Minutes 2 sets x5 ea Comments improved PPT/neutral pelvis & TA engagement, glut drive lift Prone Exercises plank Prone Exercise Name floor: knees forearms Side bilateral Reps/Minutes 30 sec, 42 sec Comments cued glut fac, core & scap quivering, good form noted just tiring Standing Exercises chair taps Standing Exercise post manual-discussed continue at home Name Resistance 10# DB between BUEs Reps/Minutes 10 reps Comments cued buttock, reports feels like more effort tiring RLE than L- great ex Other Exercises self STMs Other Exercise Name Luis: Glut Max/lateral sacrum Side bilateral Equipment Used hooklying gluts over luis miracle balls Reps/Minutes 6min Comments verbal review sustained hold vs MWM hip IR/ER single vs luis- good response Manual Therapy Treatment Consent Patient gave verbal Yes consent for manual treatment Soft Tissue Mobilization lumbar Body Location Luis: ES, prox lat at pelvis Mobilization Type Instrument Assisted Comments cupping in child's pose positioning: sustained hold & glide, ed use silicone cups Joint Mobilizations knee Joint L Direction anterior-tibilal translation stretch Grade III Body Position Prone Reps/Duration 30 sec x2, manual, 2 reps self Comments manual with strap and ed self quadruped noodle behind knee instructed sit back in heels- good knee gapping stretch- good release knee mobility R>L even though L was the tight coming in today. 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 Self-Care/Home Management Treatment Education Patient Education Body Mechanics,Home Exercise Program,Joint Protection, Pain Management,Safety Other Education Ed instruction self Luis Knee flexion anterior-tibilal translation and quad stretch with improved eliminated distal quad tightness. Recommended continue self manual has learned in PT for carryover home and continue perform strengthening ther ex just stretching for support ADLs. Physical Therapy Assessment Goals posture Powder Compounder Goal (LTG) Pt will score at least 4/5 on VCT to show improved posture in order to allow pt to do standing tasks for longer w/o inc pain 01/18-3/5 LTG Duration 03/25 activity Powder Compounder Goal (LTG) Pt will be able to return to doing longer walks w/hills and playing with his kids w/o back pain greater than 2 /10. 01/18-about 1 mile but ankle also limits LTG Duration 03/22 strength Short Term Goal (STG Pt will be indep w/HEP w/o cues to show self ability to ) help manage pain. STG Duration achieved 01/18 Powder Compounder Goal (LTG) pt will score at least 4+/5 on BLE MMT and at least 3/5 LPM and EFT to show improved stability to allow pt to do more house work 01/18-improving LTG Duration 03/25 Assessment Summary Assessment Pt improved myofascial mobility in low back and posterior pelvis with use of cupping and instruction sustained stretching over miracle balls. He is able to progress hip extension with improved hip flexor mobility. Improved progression core and glut contraction during plank on floor vs elevated table today. Recommended continue self manual has learned in PT for carryover home and continue perform strengthening ther ex just stretching for support ADLs. Physical Therapy Plan Frequency and Duration Frequency of 2x/Week Treatment Duration of 12 treatment (weeks) Plan of Care Start 12/25/24 Date Plan of Care End 03/25/25 Date Therapeutic Interventions Therapeutic Balance Training,Gait Training,Home Exercise Program, Interventions Joint Mobilizations,Manual Therapy,Neuromuscular Re- education,Orthotic/Prosthetic Management,Self-Care/Home Management,Soft Tissue Mobilization,Taping,Therapeutic Activities,Therapeutic Exercises Modalities Cold Pack/Ice Massage,Electric Stimulation,Hot Packs, Traction- Mechanical Next Visit Focus/Plan Next Note Type Treatment Note Next Visit Plan Check appts. REcheck SI, knee self mob with noodle child's pose positioning, and miracle ball self release posterior pelvis and use strap for hip mobs PRN. REview HEP including modified plank, next progress bridge over tball, check self STMs helped, POC continue: core stability exercises, foam roll exercises, cat/cow, hip flexor stretch, manual to hips, lumbar, innominate and LLE to improve alignment
--- NOTE | 2025-02-07 11:38 | PT.OTN ---
Current Diagnoses Vertebrogenic low back pain (02/07/25) Physical Therapy Treatment Note PT OP: Lower Back/Lower Extremity Start: 12/25/24 11:35 Freq: Status: Active Protocol: Document 02/07/25 10:50 [facility] (Rec: 02/07/25 11:38 [facility] [id number]) Out-Patient Physical Therapy Visit Information Visit Information Visit Type Treatment Note Visit Start Time 10:50 Visit Stop Time 11:30 Visit Number 10 Number of OTHER SPORTS OFFICIAL Visits 0 Progress Note Due 02/17/25 OP-PT Subjective Patient Comments Patient Comments Pt reports his stomach thing came back to about a week ago. [place] really good after therapy last time. Got some miracle balls. Back pain got brought on about walking Therapeutic Exercises Supine Exercises foam roll Supine Exercise Name 1. UE flex 2. UE Habd 3. UE abd 4. tspine ext Side bilateral Reps/Minutes 10 ea bug Supine Exercise Name 90/90 and 90 deg flex to opp UE/LE lower Side bilateral Reps/Minutes 10 ea Comments cues breathing and abodmen engagment Sidelying Exercises sideplank Sidelying Exercise forearm and knees Name Side bilateral Reps/Minutes 5 lifts Comments 5 scap sets prior to startng on R Other Exercises quadruped Other Exercise Name bird dog Side bilateral Reps/Minutes 12 ea Comments cues neutral spine throughout Manual Therapy Treatment Consent Patient gave verbal Yes consent for manual treatment Soft Tissue Mobilization abdomen Comments OSFM: 1. fascia around liver 2. fascia superior to stomach 3. ant leaf coronary ligament 4. fascia around transverse and decending colon 5. fascia around sigmoid colon Physical Therapy Assessment Goals posture Sports Management Professor Goal (LTG) Pt will score at least 4/5 on VCT to show improved posture in order to allow pt to do standing tasks for longer w/o inc pain 01/18-3/5 LTG Duration 03/25 activity [facility] Goal (LTG) Pt will be able to return to doing longer walks w/hills and playing with his kids w/o back pain greater than 2 /10. 01/18-about 1 mile but ankle also limits LTG Duration 03/22 strength Short Term Goal (STG Pt will be indep w/HEP w/o cues to show self ability to ) help manage pain. STG Duration achieved 01/18 Sports Management Professor Goal (LTG) pt will score at least 4+/5 on BLE MMT and at least 3/5 LPM and EFT to show improved stability to allow pt to do more house work 01/18-improving LTG Duration 03/25 Assessment Summary Assessment Pt had improved LTR after manual and less feeling of tension. Abdominal tension likely limiting ROM of spine w/pull but overall spinal ROM improved w/PT. no inc LBP w/advanced core Physical Therapy Plan Frequency and Duration Frequency of 2x/Week Treatment Duration of 12 treatment (weeks) Plan of Care Start 12/25/24 Date Plan of Care End 03/25/25 Date Next Visit Focus/Plan Next Note Type Treatment Note Next Visit Plan PN next PT visit
--- NOTE | 2025-02-13 10:35 | PT.OPPN ---
Current Diagnoses Vertebrogenic low back pain (02/13/25) Physical Therapy Progress Note PT OP: Lower Back/Lower Extremity Start: 12/25/24 11:35 Freq: Status: Active Protocol: Document 02/13/25 09:02 [facility] (Rec: 02/13/25 10:35 [facility] [id number]) Out-Patient Physical Therapy Visit Information Visit Information Visit Type Progress Note Visit Start Time 09:53 Visit Stop Time 10:31 Visit Number 11 Number of AUTO TRANSMISSION MECHANIC Visits 0 Progress Note Due 03/15/25 OP-PT Subjective Patient Comments Patient Comments feels like abdomen is less tender. Notices back most after doing some raking. Neutral position it is ok. Posture Evaluation Jennifer Postural Classification System Vertical Compression 4 Test Elbow Flexion Test 3 Lumbar Protective 2 Mechanism Left AP Lumbar Protective 3 Mechanism Right AP Lumbar Protective 3 Mechanism Left PA Lumbar Protective 3 Mechanism Right PA Hip Strength Hip Manual Muscle Testing Right Flexion (L2) 4+ Good+ Extension (S1) 5 Normal Abduction 5 Normal Adduction 5 Normal External Rotation 5 Normal Internal Rotation 5 Normal Left Flexion (L2) 4+ Good+ Extension (S1) 5 Normal Abduction 5 Normal Adduction 5 Normal External Rotation 5 Normal Internal Rotation 5 Normal Knee Strength Knee Manual Muscle Testing Right Flexion (S2) 5 Normal Extension (L3) 5 Normal Left Flexion (S2) 5 Normal Extension (L3) 5 Normal Therapeutic Exercises Standing Exercises SB Standing Exercise trunk SB Name Side bilateral Equipment Used 5lb wt Reps/Minutes 10 Comments cues no shoulder shrug flex Standing Exercise segmental Name Side bilateral Equipment Used 5# BLEs Reps/Minutes 8 Comments cues glute squeeze and drive through feet paloff press Standing Exercise w/rotation Name Side bilateral Reps/Minutes 10ea Comments cues shoulder position Other Exercises 1/2 kneel Other Exercise Name chop Side bilateral Equipment Used 2 blue bands Reps/Minutes 10 Comments cues direction Manual Therapy Treatment Consent Patient gave verbal Yes consent for manual treatment Soft Tissue Mobilization abdomen Comments OSFM: 1. L triangular ligament w/spinal ext and L rotation 2. fascia inf to L kidney Physical Therapy Assessment Goals posture Car Dumper Goal (LTG) Pt will score at least 4/5 on VCT to show improved posture in order to allow pt to do standing tasks for longer w/o inc pain 01/18-3/5 LTG Duration achieved 02/13 activity Car Dumper Goal (LTG) Pt will be able to return to doing longer walks w/hills and playing with his kids w/o back pain greater than 2 /10. 01/18-about 1 mile but ankle also limits 02/13-can do 1 mile comfortably but ankle limits,can do some hills but limited by ankle, doing better w/playing around w/kids, guards some when they are wrestling around LTG Duration 03/22 strength Short Term Goal (STG Pt will be indep w/HEP w/o cues to show self ability to ) help manage pain. STG Duration achieved 01/18 Long-Term Goal (LTG) pt will score at least 4+/5 on BLE MMT and at least 3/5 LPM and EFT to show improved stability to allow pt to do more house work 01/18-improving 02/13- hip MMT improved and met, minor dec to LPM stability LTG Duration 03/25 Assessment Summary Assessment Pt doing well with progression of exercises and is showing much improved strength and stability. Still has pain w/multidirectional motions like raking so will cont PT to work on stability w/this to dec pain Physical Therapy Plan Frequency and Duration Frequency of 2x/Week Treatment Duration of 12 treatment (weeks) Plan of Care Start 12/25/24 Date Plan of Care End 03/25/25 Date Therapeutic Interventions Therapeutic Balance Training,Gait Training,Home Exercise Program, Interventions Joint Mobilizations,Manual Therapy,Neuromuscular Re- education,Orthotic/Prosthetic Management,Self-Care/Home Management,Soft Tissue Mobilization,Taping,Therapeutic Activities,Therapeutic Exercises Modalities Cold Pack/Ice Massage,Electric Stimulation,Hot Packs, Traction- Mechanical Next Visit Focus/Plan Next Note Type Treatment Note Next Visit Plan cont to advance multi directional motions for core strength
--- NOTE | 2025-02-20 15:54 | PT.OTN ---
Current Diagnoses Vertebrogenic low back pain (02/20/25) Physical Therapy Treatment Note PT OP: Lower Back/Lower Extremity Start: 12/25/24 11:35 Freq: Status: Active Protocol: Document 02/20/25 09:46 PD (Rec: 02/20/25 10:45 PD [id number]) Out-Patient Physical Therapy Visit Information Visit Information Visit Type Treatment Note Visit Note MARIAJOSE Bhat led tx session with direct supervision by LORRAINE Lopez and permission from pt. Visit Start Time 09:46 Visit Stop Time 10:28 Visit Number 12 Number of MONEY ORDER CLERK Visits 1 Progress Note Due 03/15/25 OP-PT Subjective Patient Comments Patient Comments Pt reports lower back was okay after last session but has occasional stabbing pn in L lumbar area, using miracle balls for self pelvic mobility help. Is experiencing upper back/neck tension this past week and today, HEP planks have been difficult. He has had a difficult time finding an activity that makes it better . His lower back activities help that area. Core HEP exercises were difficult for him since last session due to his thoracic/shlder tightness/pn. Therapeutic Exercises Sidelying Exercises open book Sidelying Exercise Open books Name Side bilateral Resistance AROM Reps/Minutes 10 Comments Cues to keep head face forward to focus on T/L rot with stable cervical sp Standing Exercises SB Standing Exercise trunk SB Name Side bilateral Equipment Used 5lb wt, 10# wt Reps/Minutes 5 each Comments cues no shoulder shrug, focus on central spine mobility and no neck bend flex Standing Exercise segmental Name Side bilateral Resistance 5# in hands Reps/Minutes 8 Comments Trialed 10# but too diff, cues for slow, activate core, sm kn flex helps Other Exercises 1/2 kneel Other Exercise Name chop, added to HEP, no HO needed per pt. Side bilateral Equipment Used 2 bright green bands Reps/Minutes 8 Comments cues slow up and down, TC for shoulder position to avoid shlder elevation Manual Therapy Treatment Soft Tissue Mobilization thoracic Body Location thoracic p-a mobilizations T4-T8 Body Position Prone Comments Thoracic work to increase mobility and reduce tension complaints. Physical Therapy Assessment Goals posture Cleaning Porter Goal (LTG) Pt will score at least 4/5 on VCT to show improved posture in order to allow pt to do standing tasks for longer w/o inc pain 01/18-3/5 LTG Duration achieved 02/13 activity [facility] Goal (LTG) Pt will be able to return to doing longer walks w/hills and playing with his kids w/o back pain greater than 2 /10. 01/18-about 1 mile but ankle also limits 02/13-can do 1 mile comfortably but ankle limits,can do some hills but limited by ankle, doing better w/playing around w/kids, guards some when they are wrestling around LTG Duration 03/22 strength Short Term Goal (STG Pt will be indep w/HEP w/o cues to show self ability to ) help manage pain. STG Duration achieved 01/18 Cleaning Porter Goal (LTG) pt will score at least 4+/5 on BLE MMT and at least 3/5 LPM and EFT to show improved stability to allow pt to do more house work 01/18-improving 02/13- hip MMT improved and met, minor dec to LPM stability LTG Duration 03/25 Assessment Summary Assessment Pt reporting limitations this week due to thoracic/neck pain. Able to progress segmental flexion to 10# in each hand. Maintained 5# each for side bending. SB to R needed v cues to stay in pain free range as LB can twinge with this activity. Pt completed chop activity with good posture and no elevation of shoulders with TC at shoulders. Pt reported neck and mid back area felt better at end of tx session, with less sharp pn in LB. Pt felt that resistance band use in chop ex helped. Pt will do HEP to focus only on B chops with band until next session. Physical Therapy Plan Frequency and Duration Frequency of 2x/Week Treatment Duration of 12 treatment (weeks) Plan of Care Start 12/25/24 Date Plan of Care End 03/25/25 Date Next Visit Focus/Plan Next Note Type Treatment Note Next Visit Plan Assess thoracic/lumbar pn and tension with chops, ADLs since 02/20 session. Continue to advance multi direction motions for core strength within pain free range.
--- NOTE | 2025-03-07 11:29 | PT.OTN ---
Current Diagnoses Vertebrogenic low back pain (03/07/25) Physical Therapy Treatment Note PT OP: Lower Back/Lower Extremity Start: 12/25/24 11:35 Freq: Status: Active Protocol: Document 03/07/25 10:47 SP (Rec: 03/07/25 11:52 SP [id number]) Out-Patient Physical Therapy Visit Information Visit Information Visit Type Treatment Note Visit Start Time 10:47 Visit Stop Time 11:29 Visit Number 13 Number of CARGO WORKER Visits 2 Progress Note Due 03/15/25 OP-PT Subjective Patient Comments Patient Comments Pt reports his back doing well maybe 06/09 in back, best have been compliant with HEP. He has been limited with R shld pain lately away from his body. [facility] for R shld and L ankle but [facility] hasn't received yet. Doing SNAGS with towel and open book and self STMs with miracle ball is doing wonders for low back. Uses Voltarian for L quad/ anterior hip pain low level. Therapeutic Exercises Supine Exercises bug Supine Exercise Name 90/90- UE/ LE ext painfree range Side bilateral Reps/Minutes 10 each side Comments good breath and slow pacing, little weakness in R anterior hip & R shld rge Sitting Exercises Thoracic Rotation Sitting Exercise 1. Chop: cross body small range 2. Lumbar flexion Name Side bilateral Resistance TB Double #3 [place] held close to body Equipment Used seated on 65cm tball Reps/Minutes 2x 15 each Comments limted R s hld and focused core engagement Standing Exercises squats Standing Exercise trialed: wt squats (approx seat height demo'd) Name Resistance 10# DB held at chest Equipment Used - little sore walking around after. Reps/Minutes 10 reps Comments cued hip hinge, little L leg feeling anterior hip/quad weakness & deep bone Trip Extension heel lift Standing Exercise trialed in PT: plank on wall, heel raise (no HO given) Name Side bilateral Resistance AROM Equipment Used forearms on wall, SL heel lift with glut engagement Reps/Minutes 5 reps x3 sets each side Comments cued glut, TA & neutral spine elongation- good effort, no pain reported SB Standing Exercise trunk SB Name Side bilateral Equipment Used 5#DB x5 reps, 7# DB x15 reps, 10#DB x6 reps Reps/Minutes each side Comments cues no shoulder shrug, focus on central spine mobility and no neck bend flex Standing Exercise segmental lumbar flexion Name Side bilateral Resistance 5# DB in hand Equipment Used back on wall vs free standing Reps/Minutes 12 Comments little light headed last couple reps with head down, recovers quickly-no pn Self-Care/Home Management Treatment Education Patient Education Body Mechanics,Home Exercise Program,Joint Protection, Pain Management,Posture,Safety Other Education cues for proper form throughout tx as needed. Physical Therapy Assessment Goals posture [facility] Goal (LTG) Pt will score at least 4/5 on VCT to show improved posture in order to allow pt to do standing tasks for longer w/o inc pain 01/18-3/5 LTG Duration achieved 02/13 activity Contact Lens Cutter Goal (LTG) Pt will be able to return to doing longer walks w/hills and playing with his kids w/o back pain greater than . 01/18-about 1 mile but ankle also limits 02/13-can do 1 mile comfortably but ankle limits,can do some hills but limited by ankle, doing better w/playing around w/kids, guards some when they are wrestling around 03/07/25: reports did couple miles at time [place] with school and L ankle felt swollen but not visual used ice recovery. But back doing well. Used Tylenol for supoprt preventions. LTG Duration 03/22 updated 03/07/25 strength Short Term Goal (STG Pt will be indep w/HEP w/o cues to show self ability to ) help manage pain. STG Duration achieved 01/18 Contact Lens Cutter Goal (LTG) pt will score at least 4+/5 on BLE MMT and at least 3/5 LPM and EFT to show improved stability to allow pt to do more house work 01/18-improving 02/13- hip MMT improved and met, minor dec to LPM stability LTG Duration 03/25 Assessment Summary Assessment Pt improved core and LE ther ex today with modifications with education self aware for home carryover if needed. Cues as needed during initiated triple extension SL heel lift, for core and LE functional strengthening like stepping up inclines for hiking trails, instructed modified forearm on cobian to support R shld close chain. Pt reports good feedback gentle active stretch R UT and little core engagment during lateral SB with no pain, in past anticipated a jab pain but not now feels like has good mobiltiy and strength support. Pt reports his Angeline tavares feels better end tx and good effort work accomplished. Physical Therapy Plan Frequency and Duration Frequency of 2x/Week Treatment Duration of 12 treatment (weeks) Plan of Care Start 12/25/24 Date Plan of Care End 03/25/25 Date Therapeutic Interventions Therapeutic Balance Training,Gait Training,Home Exercise Program, Interventions Joint Mobilizations,Manual Therapy,Neuromuscular Re- education,Orthotic/Prosthetic Management,Self-Care/Home Management,Soft Tissue Mobilization,Taping,Therapeutic Activities,Therapeutic Exercises Modalities Cold Pack/Ice Massage,Electric Stimulation,Hot Packs, Traction- Mechanical Next Visit Focus/Plan Next Note Type Discharge Summary Next Visit Plan Assess response to modification of core HEP for decreased UE away from body. POC: check next tx if ok and ready to DC this encounter and if received referral tro Angeline tavares and Erin ferrara.
--- NOTE | 2025-03-15 16:18 | PT.OPDS ---
Current Diagnoses Vertebrogenic low back pain (03/15/25) Visit Care Team Role Provider Type Karma Berrios MD Attending Provider Non-Staff Family Provider Referring Provider Specialty: Medical Address: [facility] [address]IMIR[address] Bashir, [address], [place], [place], [facility] Email: Visit Number Visit Number 14 Discharge Summary PT OP: Lower Back/Lower Extremity Start: 12/25/24 11:35 Freq: Status: Active Protocol: Document 03/15/25 15:23 [facility] (Rec: 03/15/25 16:17 [facility] [id number]) Out-Patient Physical Therapy Visit Information Visit Information Visit Type Discharge Summary Visit Start Time 15:22 Visit Stop Time 16:02 Visit Number 14 Number of RADIOLOGIC ELECTRONIC SPECIALIST Visits 0 OP-PT Subjective Patient Comments Patient Comments back is doing well. Maybe a .5. Did have some R hip impingement that is slowly getting better since last session. A couple days w/heavy yard work and definitely felt it. Posture Evaluation Jennifer Postural Classification System Elbow Flexion Test 3 Lumbar Protective 3 Mechanism Left AP Lumbar Protective 3 Mechanism Right AP Lumbar Protective 3 Mechanism Left PA Lumbar Protective 4 Mechanism Right PA Therapeutic Exercises Supine Exercises bug Supine Exercise Name 90/90- UE/ LE ext painfree range Side bilateral Reps/Minutes 10 each side Comments Cues no back lift Prone Exercises plank Prone Exercise Name floor: knees forearms Side bilateral Reps/Minutes 30 sec Comments cued neck and scap position Standing Exercises lift Side bilateral Equipment Used 5lb B Reps/Minutes 10 Comments cues back and scap position and knee position squats Standing Exercise mini squat Name Resistance 5lb dumbells Reps/Minutes 5 Comments cues comfortable range and knee position SB Standing Exercise trunk SB Name Side bilateral Equipment Used 10lb ea side Reps/Minutes 5 Comments cues start w/o significant ext flex Standing Exercise segmental lumbar flexion Name Side bilateral Resistance 5# DB in hands Reps/Minutes 3 Comments cues segmental and controlled Manual Therapy Treatment Consent Patient gave verbal Yes consent for manual treatment Soft Tissue Mobilization hip Comments R glutes w/IR/ER Joint Mobilizations innominate Comments caudal L c/r hip Comments L inf c/r and taught self w/band Physical Therapy Assessment Goals posture Senior Medical Transcriptionist Goal (LTG) Pt will score at least 4/5 on VCT to show improved posture in order to allow pt to do standing tasks for longer w/o inc pain 01/18-3/5 LTG Duration achieved 02/13 activity Senior Medical Transcriptionist Goal (LTG) Pt will be able to return to doing longer walks w/hills and playing with his kids w/o back pain greater than /10. 01/18-about 1 mile but ankle also limits 02/13-can do 1 mile comfortably but ankle limits,can do some hills but limited by ankle, doing better w/playing around w/kids, guards some when they are wrestling around 03/07/25: reports did couple miles at time [place] with school and L ankle felt swollen but not visual used ice recovery. But back doing well. Used Tylenol for supoprt preventions. 03/15-went to [facility] [employer] and hiked a couple times a day and back was ok, ankle limited, LTG Duration achieved 03/15 strength Short Term Goal (STG Pt will be indep w/HEP w/o cues to show self ability to ) help manage pain. STG Duration achieved 01/18 [facility] Goal (LTG) pt will score at least 4+/5 on BLE MMT and at least 3/5 LPM and EFT to show improved stability to allow pt to do more house work 01/18-improving 02/13- hip MMT improved and met, minor dec to LPM stability LTG Duration achieved Assessment Summary Assessment Pt has met goals at this time and has much lower pain than he has in years in his low back. He is indep w/HEP and compliant w/doing exercises at home. At this time DC to HEP. Physical Therapy Plan Discharge Physical Therapy Discharge Reasons Goals Met
== END 2025-03-16 09:36 | disposition home or self-care (01) ==
LOC: PHYS 15:15
PROVIDERS: Family Provider Student in an Organized Health Care Education/Training Program; Referring Provider Student in an Organized Health Care Education/Training Program; Visit Provider Student in an Organized Health Care Education/Training Program
DX: M54.51 Vertebrogenic low back pain (principal)
CPT/HCPCS: 97110; 97112; 97140; 97162; 97535